=== PATIENT | male | born 1980 | race Caucasian/White ===

== ENCOUNTER 2019-03-01 17:10 | Inpatient (IN) ==
[2019-03-01] MEDS ORDERED: TORADOL IV ONE (17:53)
[2019-03-01] MEDS ORDERED: NS 1,000 ML IV ONE ×2 (17:53→19:21)
--- NOTE | 2019-03-01 17:58 | PROVIDER DOCUMENTATION ---
HPI-Abdominal Pain/GI Problem - General Chief Complaint: Constipation Stated Complaint: STOMACH PAIN Time Seen by Provider: 03/01/19 17:30 Source: patient Allergies/Adverse Reactions: Patient Allergies Allergy/AdvReac Type Severity Reaction Status Date / Time cefaclor [From Ceclor] Allergy Unknown Verified 03/01/19 18:13 Home Medications: Home Medication List Medication Instructions Recorded Confirmed Last Taken Type Hydrocodone/Acetaminophen 1 tab PO PRN PRN 03/01/19 03/01/19 03/01/19 History [Hydrocodone-Acetamin 7.5-325] NK [No Home Medications] 03/01/19 03/01/19 Unknown History - History of Present Illness-ABD Nature of Presenting Problems: Patient is a 38yo M who presents with complaints of RLQ pain, constipation, and fever x5 days. Reports when symptoms originally began, he was experiencing LLQ abdominal pain, vomiting, and diarrhea and was taking OTC medications for the Flu. Reports abdominal pain then moved to around his belly button and has not moved to his RLQ. States he has been taking [place] for dental pain s/p extraction and has been constipated since. Reports no solid BM in 5 days; small liquid BMs x3 days. Has tried numerous OTC laxatives and enemas without improvement. Upon examination, patient appears to be in a moderate amount of distress. Dry mucus membranes noted. Abdominal Pain Onset Location: reports: RLQ, LLQ (onset, then moved to RLQ) Pain Radiation: reports: no radiation Quality of Pain: reports: pressure Severity in ED: reports: moderate Onset/Duration: reports: 5 days ago Timing: reports: constant, getting worse Activities at Onset: reports: none Modifying Factors: improves with: nothing Associated Symptoms: reports: constipation, diarrhea, fever/chills, nausea, vomiting (5 days ago). denies: back/neck pain, shortness of breath Last BM: 5 days ago (no solid BM for 5 days) Dark Stools Present?: reports: none noticed Rectal Bleeding: reports: none # of Diarrhea Episodes: 3 (over the past 5 days) Rectal Pain: reports: none # of Vomiting Episodes: 1 (5 days ago) Emesis Description: reports: other (undigested food) Bruising or Bleeding Gums?: No Similar Symptoms Previously?: No Recently seen or treated by another doctor?: No Review of Systems - Adult - REVIEW OF SYSTEMS - ADULT Constitutional: reports: see HPI, chills, fever Eyes: reports: no symptoms reported Ears, Nose, Mouth & Throat: reports: no symptoms reported Cardiovascular: reports: no symptoms reported. denies: chest pain, palpitations Respiratory: reports: no symptoms reported. denies: cough, shortness of breath Gastrointestinal: reports: see HPI, abdominal pain, constipation, diarrhea, nausea, vomiting Genitourinary: reports: no symptoms reported Musculoskeletal: reports: no symptoms reported Integumentary: reports: no symptoms reported Neurological: reports: no symptoms reported Psychiatric: reports: no symptoms reported Endocrine: reports: no symptoms reported Past History - Adult - PAST MEDICAL HISTORY-ADULT Review of Records: reports: Nursing Assessment Review, Medications Reviewed - IMMUNIZATION STATUS Childhood Immunizations: See Nurse Assessment Flu Vaccine: See Nurse Assessment - FAMILY HISTORY Family History: reviewed, not pertinent Physical Exam-General - PHYSICAL EXAM-ADULT Initial Vital Signs Reviewed: Yes - CONSTITUTIONAL General Appearance: alert, moderate distress. negative: lethargic, slow to respond, obtunded - EYES Eyes: PERRL/EOMI, pink conjunctivae. negative: EOM palsy, scleral icterus - HEAD, EARS, NOSE, MOUTH & THROAT HENMT: normocephalic/atraumatic. negative: moist mucous membranes (dry), angioedema - NECK Neck: full range of motion, supple, normal inspection - RESPIRATORY Respiratory: chest non-tender, lungs clear, normal breath sounds, no pleuratic chest pain, no respiratory distress, no accessory muscle use. negative: crackl es, rales, rhonchi, stridor, wheezing - CARDIOVASCULAR Cardiovascular: no gallop, tachycardia (103) - GASTROINTESTINAL (ABDOMEN) Abdominal Exam: soft, abnormal bowel sounds (hypoactive all quadrants), guarding , rebound, tenderness (LLQ; RLQ), McBurney's point tenderness. negative: rigid, Rovsing's sign - MUSCULOSKELETAL Back Exam: normal inspection Extremity: normal range of motion, non-tender - SKIN Integumentary: normal color, warm/dry. negative: cyanosis, jaundice, mottled, pallor - NEUROLOGIC Neurologic: grossly normal. negative: aphasia, EOM palsy - PSYCHIATRIC Psych/Mental Status: normal mood/affect, normal thought content, normal thought process, oriented x 3 Progress - PLAN OF CARE/RESULTS Progress/Plan/Lab Results: Vital Signs - 8 hr 03/01/19 17:21 Temperature 99.9 F H Pulse Rate 103 H Respiratory Rate 16 Blood Pressure 159/78 O2 Sat by Pulse Oximetry 98 Orders Category Date Time Status Saline Loc NOW Care 03/01/19 17:30 Active CBC WITH ELECTRONIC DIFF [HEME] Stat Lab 03/01/19 17:30 Uncollected COMPREHENSIVE METABOLIC PANEL [CHEM] Stat Lab 03/01/19 17:30 Uncollected LIPASE [CHEM] Stat Lab 03/01/19 17:30 Uncollected URINALYSIS W/POSS RFLX CULT [URINALYSIS] Stat Lab 03/01/19 17:30 Uncollected Ketorolac [Toradol] Med 03/01/19 17:53 Once 30 mg IV NOW ONE Ns 1000 ml IV Bolus X1 Med 03/01/19 17:53 Ordered 0.9% Sodium Chloride Inj [Ns] 1,000 ml IV 999 mls/hr Lab results, imaging results, and need for admission discussed with patient who agrees with and verbalizes understanding. Result Diagrams: 03/01/19 17:55 03/01/19 17:55 - XRAY 1 XRAY: Bilateral XRAY Study: Chest Impression: See EMR Report ([facility] - [address] [facility], [address], [place] [address] [facility] - [address] [place] [address] Department of Imaging Patient: JOSELITO BOYER Date: 03/01/19MR#: [id number] : 1980ADM Status: REG [facility]#: [id number] Age/Sex: 38/MRoom/Bed: Loc: ED Ordering Physician: Vivi Arias Family Physician: None,PCP Reason for Procedure: sepsis protocol Signed EXAM: CHEST-1 VIEW 03/01/2019 HISTORY: sepsis protocol TECHNIQUE: AP portable upright at 1822 COMMENT: The inspiration is suboptimal. There are no previous studies available for comparison. There is no evidence of focal pulmonary opacity. The heart size is slightly enlarged. The pulmonary vascularity is prominent. IMPRESSION: Poor inspiration. Cardiomegaly. Electronically signed by Jonathan Lee 03/01/2019 7:00 PM 03/01/19 1900 Interpreting Physician: Jonathan Lee MD Dictated Date/Time: 03/01/19 185 cc: Vivi Alcantara; None,PCP) - CT/MRI 1 CT Study: Abdomen, Pelvis Impression: See EMR Report ([facility] - [address] [facility], [address], [place] [address] [facility] - [address] [place] [address] Department of Imaging Patient: JOSELITO BOYER Date: 03/01/19#: [id number] : 1980ADM Status: [facility]#: [id number] Age/Sex: 38/MRoom/Bed: Loc: ED Ordering Physician: Vivi Arias Family Physician: None,PCP Reason for Procedure: RLQ pain; fever; constipation Signed EXAM: CT ABD/PELVIS W/IV CONT ONLY 03/01/2019 HISTORY: RLQ pain; fever; constipation TECHNIQUE: This exam was performed using automated exposure control, adjustment of mA or kV according to patient size, and/or use of iterative reconstruction technique. COMMENT: There are no previous studies. The visualized portion of the chest is unremarkable. The spleen contains a calcified granuloma. The liver is unremarkable. The adrenal glands are not enlarged. The pancreas is within normal limits. There is some fluid throughout the colon. The small bowel is not distended. There are nonspecific periaortic nodes the largest of which has a long axis dimension of 1.6 cm. There is induration in the mesenteric fat slightly to the right of the midline. There is an abscess in the upper pelvis around image 132 with poorly defined borders. There is diverticulitis in the anterior sigmoid. There is also extraluminal gas posterior to this loop of the sigmoid. The appendix is normal in appearance. There is fluid present in the distal colon and rectum. The urinary bladder is not distended. There is fat in the left inguinal canal. There are bone islands in the pubic bone on the left. There is no evidence of acute bony abnormality. IMPRESSION: Sigmoid diverticulitis with early abscess formation. Electronically signed by Jonathan Lee 03/01/2019 8:20 PM 03/01/192019 Interpreting Physician: Jonathan Lee MD Dictated Date/Time: 03/01/192016 cc: Vivi Alcantara; None,PCP) - CONSULTS/PCP/HOSPITALIST Notification #1 *Consult/PCP/Hospitalist*: Dr. Crane, Surgery Time Discussed: 20:30 Reason/Comments: Sigmoid diverticulitis w/ abscess formation Consult Disposition: Will see in ED, Admit (To Hospitalist) #2 Consult: Dr. Yin, Hospitalist Time Discussed: 20:36 Reason/Comments: Sigmoid diverticulitis w/ abscess formation Consult Disposition: Admit Departure - Departure Date of Disposition Decision: 03/01/19 Time of Disposition Decision: 20:36 DIAGNOSIS: Diverticulitis of intestine with abscess Qualifiers: Diverticulitis site: unspecified part of intestinal tract Diverticulitis bleeding: unspecified bleeding status Qualified Code(s): K57.80 - Diverticulitis of intestine, part unspecified, with perforation and abscess without bleeding Abdominal pain Qualifiers: Abdominal location: lower abdomen, unspecified Qualified Code(s): R10.30 - L ower abdominal pain, unspecified Nausea & vomiting Qualifiers: Vomiting type: unspecified Vomiting Intractability: non-intractable Qualified Code(s): R11.2 - Nausea with vomiting, unspecified Leukocytosis Qualifiers: Leukocytosis type: unspecified Qualified Code(s): D72.829 - Elevated white blood cell count, unspecified Disposition: ADMITTED INPATIENT 09 Certified Medical Emergency: Emergent Condition: Stable - Critical Care Note This patient required my direct & personal management of CC.: No Attestation - Physician/ CHARLEY Attestation Patient care was provided by Advanced Practice Provider:: Yes Advanced Practice Provider:: Vivi Alcantara Advanced Practice Provider documentation review:: The Mid-level provider documentation, treatment plan and medical decision making was reviewed by the physician who agrees with all treatment and medical decision making by the MLP. The physician spent face to face time with patient:: No Advanced Practice Provider documentation review:: Supervising physician onsite and consulted in the evaluation and care of this patient. The physician did not have a face to face encounter with the patient.
[2019-03-01 18:29] LABS: BASO# 0.03 X1000 (0.0-0.2); BASO% 0.1 % (0.0-0.8); EOS# 0.01 X1000 (0.0-0.7); HEMATOCRIT 40.6 % (42.0-52.0); HEMOGLOBIN 13.9 g/dL (14.0-18.0); IMM GRAN# 0.07 X1000 (0.0-0.04); IMM GRAN% 0.3 % (0.0-0.5); LYMPH# 1.83 X1000 (1.2-3.4); MCH 28.4 PG (27-31); MCHC 34.2 g/dL (33-37); MONO# 1.79 X1000 (0.11-0.59); MONO% 7.8 % (1.7-9.3); MPV 9.7 FL (7.4-10.4); NEUT# 19.11 X1000 (1.4-6.5); NEUT% 83.8 % (42.2-75.2); PLT 224 X1000 (130-400); RBC 4.89 XMIL (4.7-6.1); RDW 12.1 % (11.5-14.5); WBC 22.84 X1000 (4.8-10.8)
[2019-03-01 18:33] LABS: INR 1.1; PROTIME 14.4 Seconds (11.0-16.0)
[2019-03-01 18:34] LABS: PTT 35.7 Seconds (22.3-41.8)
[2019-03-01] MEDS ORDERED: ZOSYN 3.375 GM in NS 50 ML IV ONE (18:38)
[2019-03-01 18:49] LABS: AGAP 19; ALB/GLOB RATIO 1.6; ALBUMIN 4.2 g/dL (3.5-5.0); ALKALINE PHOSPHATASE 89 U/L (32-122); BUN 12 mg/dL (8-22); CALCIUM 9.7 mg/dL (8.8-10.2); CHLORIDE 99 mmol/L (98-107); COSMO 278; CREATININE 0.8 mg/dL (0.7-1.2); ESTIMATED GFR > 60; GLUCOSE 111 mg/dL (70-104); GOT 29 U/L (10-34); GPT 41 U/L (10-44); LIPASE 16 U/L (13-60); POTASSIUM 3.6 mmol/L (3.5-5.1); SODIUM 139 mmol/L (136-145); TCO2 21 mmol/L (25-35); TOTAL BILIRUBIN 0.92 mg/dL (0.20-1.00); TOTAL PROTEIN 6.9 g/dL (6.3-8.3)
--- NOTE | 2019-03-01 19:03 | Diag Imaging Result Doc PS360 ---
EXAM: CHEST-1 VIEW 03/01/2019 HISTORY: sepsis protocol TECHNIQUE: AP portable upright at 1822 COMMENT: The inspiration is suboptimal. There are no previous studies available for comparison. There is no evidence of focal pulmonary opacity. The heart size is slightly enlarged. The pulmonary vascularity is prominent. IMPRESSION: Poor inspiration. Cardiomegaly. Electronically signed by Jonathan Lee 03/01/2019 7:00 PM
[2019-03-01 19:04] LABS: URINE SOURCE CLEAN CATCH
[2019-03-01] MEDS ORDERED: TYLENOL PR ONE (19:21)
[2019-03-01 19:30] LABS: BILIRUBIN URINE SMALL (NEGATIVE); BLOOD URINE TRACE (NEGATIVE); COLOR YELLOW; GLUCOSE URINE NEGATIVE (NEGATIVE); KETONE URINE 100 mg/dL (NEGATIVE); LEUKOCYTES URINE NEGATIVE (NEGATIVE); NITRITE URINE NEGATIVE (NEGATIVE); PH URINE 6.5; PROTEIN URINE 200 mg/dL (NEGATIVE); SP GRAVITY URINE 1.037; TURBIDITY URINE CLEAR (CLEAR); UROBILINOGEN URINE NORMAL (NORMAL)
[2019-03-01 19:34] LABS: UR EPITHELIAL CELLS <10 /HPF (<10); URINE BACTERIA NEGATIVE /HPF; URINE RBC <10 /HPF (<10); URINE WBC <10 /HPF (<10)
[2019-03-01 19:40] LABS: URINE CRYSTALS NONE SEEN
--- NOTE | 2019-03-01 20:22 | Diag Imaging Result Doc PS360 ---
EXAM: CT ABD/PELVIS W/IV CONT ONLY 03/01/2019 HISTORY: RLQ pain; fever; constipation TECHNIQUE: This exam was performed using automated exposure control, adjustment of mA or kV according to patient size, and/or use of iterative reconstruction technique. COMMENT: There are no previous studies. The visualized portion of the chest is unremarkable. The spleen contains a calcified granuloma. The liver is unremarkable. The adrenal glands are not enlarged. The pancreas is within normal limits. There is some fluid throughout the colon. The small bowel is not distended. There are nonspecific periaortic nodes the largest of which has a long axis dimension of 1.6 cm. There is induration in the mesenteric fat slightly to the right of the midline. There is an abscess in the upper pelvis around image 132 with poorly defined borders. There is diverticulitis in the anterior sigmoid. There is also extraluminal gas posterior to this loop of the sigmoid. The appendix is normal in appearance. There is fluid present in the distal colon and rectum. The urinary bladder is not distended. There is fat in the left inguinal canal. There are bone islands in the pubic bone on the left. There is no evidence of acute bony abnormality. IMPRESSION: Sigmoid diverticulitis with early abscess formation. Electronically signed by Jonathan Lee 03/01/2019 8:20 PM
[2019-03-01] MEDS ORDERED: NS 1,000 ML IV SCH (22:05)
[2019-03-01] MEDS: MORPHINE IV PRN (23:30)
[2019-03-01] MEDS: INVANZ 1 GM/NS 1 GM/50 ML IVPB IV SCH (23:31)
--- NOTE | 2019-03-01 23:54 | HISTORY AND PHYSICAL ---
PRIMARY CARE PHYSICIAN: None. CHIEF COMPLAINT: Abdominal pain x1 week. HISTORY OF PRESENTING ILLNESS: This is a 38-year-old male without any significant past medical history who had presented to the emergency department with a 1-week history of having abdominal pain, fever and chills. The patient states the pain was worsening and he was not having any improvement. The patient states that recently underwent a tooth extraction and was put on amoxicillin. He has been on amoxicillin for the past week. However, patient states that he continued to have worsening abdominal discomfort and fevers and subsequently had come to the emergency department. In the ED, he was evaluated. He had imaging done which did show diverticulitis with a possible abscess. His case was discussed with General Surgery who recommended admission for further management. At the time of my examination, patient denied any chest pain, shortness of breath, hemoptysis, melena but complained of abdominal pain, fever, chills and nausea. PAST MEDICAL HISTORY: None. PAST SURGICAL HISTORY: Tooth extraction. ALLERGIES: Cefaclor. CURRENT MEDICATIONS: None. SOCIAL HISTORY: No history of smoking. Admits to social alcohol use. Denies any illicit drug use. FAMILY HISTORY: No history of coronary artery disease. REVIEW OF SYSTEMS: Fourteen point review of system as listed in HPI. Other systems negative. PHYSICAL EXAMINATION: GENERAL: Cooperative, friendly male. He is resting more comfortably now. VITAL SIGNS: Temperature of 102.2 degrees, pulse 101, respirations 16, blood pressure 137/81. HEENT: Atraumatic, normocephalic. Extraocular movements intact. PERRLA. NECK: No masses. CHEST: Clear to auscultation. CARDIOVASCULAR: Regular rate and rhythm. S1, S2. ABDOMEN: Soft. Diffuse tenderness. EXTREMITIES: No edema. NEUROLOGIC: He is awake, alert, oriented x3. GENITOURINARY: No bladder distention. SKIN: Warm. LABORATORIES AND STUDIES: WBC 22.84, hemoglobin 13.9, hematocrit 40.6, platelets 224,000. Sodium 139, potassium 3.6, chloride 99, CO2 is 21, BUN is 12, creatinine 0.8, glucose is 111. Troponin 0.010. CT abdomen and pelvis shows sigmoid diverticulitis with early abscess formation. ASSESSMENT: A 38-year-old male without any significant past medical history presented to the emergency department with 1-week history of having worsening abdominal pain, fever and chills. He was evaluated the emergency department. He had imaging done which did show sigmoid diverticulitis. Subsequently, he will require admission for further management. Acute sigmoid diverticulitis. PLAN: 1. We will admit patient to medical floor with telemetry. 2. We will continue with IV fluids, antiemetics, pain control. 3. We will start patient on IV antibiotics. The patient had been on amoxicillin so we will change to another agent. 4. We will put patient on DVT prophylaxis with SCDs. 5. We will continue to follow and reassess. Make further recommendation based on patient's clinical course. cc: Bruce Yin MD
--- NOTE | 2019-03-02 02:07 | GENERAL SURGERY CONSULTATION ---
DATE: 03/01/2019 CHIEF COMPLAINT: Abdominal pain. REASON FOR CONSULTATION: Diverticular abscess. HISTORY OF PRESENT ILLNESS: This is a 38-year-old gentleman, he is otherwise reasonably healthy. He had a tooth extraction about a week and half ago for an abscessed tooth, was on penicillin for several weeks related to that; over the last 48 to 72 hours he has developed worsening abdominal pain, initially started in left lower quadrant, radiated to the right lower quadrant. He came the ER today after he began feeling much worse and a CT scan was obtained that showed diverticulitis with an adjacent developing abscess. No free intra-abdominal air or free fluid. He had a leukocytosis. Found of the be febrile. He has had no blood in his stools. He did attempt laxatives at home, he thought he was constipated. He has never had a colonoscopy. But prior to the last couple weeks he was in his usual state of health. MEDICAL HISTORY: Recent dental procedures. SURGICAL HISTORY: No abdominal operations but he has had the recent tooth extraction. SOCIAL HISTORY: No tobacco, alcohol, or drugs. He works in the kitchen. FAMILY HISTORY: His maternal grandmother had colon cancer and from this. REVIEW OF SYSTEMS: Ten-point review of systems negative other than what is mentioned in HPI. PHYSICAL EXAMINATION: Vital signs: He is febrile up to 102.2. Low-grade tachycardia, heart rate in the 90s. Blood pressure has been okay. Oxygen saturations normal on room air. General: He is alert, appears uncomfortable, but in no acute distress. HEENT: No scleral icterus. No cervical masses. Cardiovascular: Normal rate. Pulmonary: No increased work of breathing. Abdomen: Soft. He has no diffuse peritonitis. He is tender in the lower abdomen and mostly in the right lower quadrant with some voluntary guarding, but no peritonitis. Integument: Warm and dry. Psychiatric: Appropriate affect. Neurologic: No gross deficits. Peripheral vascular: No lower extremity edema. LABS: White count 22. Renal function normal. Glucose okay. I reviewed his CT scan with findings noted in his HPI. ASSESSMENT AND PLAN: This is a 38-year-old gentleman with developing diverticular abscess. I do not see free air or free fluid, and he does not have peritonitis on exam. Recommended bowel rest and IV antibiotics. He has recently been on penicillin, as such we will transition from Zosyn over to Cipro and Flagyl. We discussed possibility and the role of surgery and the possibility of colostomy. He understands all this. We will pursue nonoperative management, at least in the short-term, monitoring his progress. His significant other is here with him. We discussed the plan with her as well. He has been admitted the hospitalist. Will follow along. cc: Amisha Crane MD
[2019-03-02 06:53] LABS: BASO# 0.02 X1000 (0.0-0.2); BASO% 0.1 % (0.0-0.8); EOS# 0.03 X1000 (0.0-0.7); EOS% 0.1 % (0.0-10.0); HEMATOCRIT 36.5 % (42.0-52.0); HEMOGLOBIN 12.1 g/dL (14.0-18.0); IMM GRAN# 0.07 X1000 (0.0-0.04); IMM GRAN% 0.3 % (0.0-0.5); LYMPH# 1.34 X1000 (1.2-3.4); LYMPH% 6.3 % (20.5-51.1); MCH 28.3 PG (27-31); MCHC 33.2 g/dL (33-37); MCV 85.5 FL (81-99); MONO# 1.85 X1000 (0.11-0.59); MONO% 8.7 % (1.7-9.3); MPV 9.4 FL (7.4-10.4); NEUT# 17.87 X1000 (1.4-6.5); NEUT% 84.5 % (42.2-75.2); PLT 195 X1000 (130-400); RBC 4.27 XMIL (4.7-6.1); RDW 12.1 % (11.5-14.5); WBC 21.18 X1000 (4.8-10.8)
[2019-03-02] MEDS: MORPHINE IV PRN ×2 (07:09→11:03)
[2019-03-02 07:15] LABS: AGAP 14; BUN 15 mg/dL (8-22); CALCIUM 8.8 mg/dL (8.8-10.2); CHLORIDE 104 mmol/L (98-107); COSMO 281; CREATININE 0.8 mg/dL (0.7-1.2); ESTIMATED GFR > 60; GLUCOSE 106 mg/dL (70-104); POTASSIUM 3.4 mmol/L (3.5-5.1); SODIUM 140 mmol/L (136-145); TCO2 22 mmol/L (25-35)
[2019-03-02] MEDS: OFIRMEV 1000 MG/ISOTONIC SOLN 1,000 MG/100 ML BOTTLE IV PRN ×2 (10:48→16:41)
[2019-03-02] MEDS: SODIUM CHLORIDE 0.9% INJ SCH ×2 (10:51→21:19)
[2019-03-02] MEDS: PEPCID IV SCH ×2 (10:51→21:19)
[2019-03-02] MEDS: DILAUDID IV PRN ×4 (12:18→21:20)
[2019-03-02] MEDS: LOVENOX SUBQ SCH (15:10)
--- NOTE | 2019-03-02 16:07 | PROGRESS NOTE ---
DATE: 03/02/2019 SUBJECTIVE: This patient is complaining of severe abdominal pain. He has been getting morphine, but it has not been working, I switched to Dilaudid 1 mg every 3 hours and this seems to be working better. His mother is at the bedside. All their questions were answered. I will continue with IV fluids. I will continue with pain medication. I will add famotidine twice a day, and for now, we will keep an eye on him. Surgery department evaluated this patient. He has a sigmoid diverticulitis with early abscess formation, surgery department on board and they will try to monitor this patient with bowel rest and antibiotics. There is a possibility of surgical intervention if he does not get better. OBJECTIVE: Vital Signs: Temperature 99.1 degrees, pulse 89, respiratory rate 22, blood pressure 148/85. Oxygen saturation 95% on room air. HEENT: Head normocephalic, no trauma. PERRLA. Neck: Supple. No JVD. No masses. Central trachea. Chest: Clear to auscultation. No wheezing. No rales. Abdomen: Soft. Tender to palpation at the level of the periumbilical and right flank and right lower quadrant, no rebound. Extremities: No edema. No clubbing, no cyanosis. Neurological: The patient is alert. He is oriented x3. No focal deficits. LABORATORY DATA: WBC 21.1, hemoglobin 12.1, hematocrit 36.5, platelets 195,000. Sodium 140, potassium 3.4, chloride 104, bicarbonate 22, BUN 15, creatinine 0.8, glucose 106, calcium 8.8. ASSESSMENT AND PLAN: 1. Acute sigmoid diverticulitis with possible early abscess formation, surgery department on board. We will monitor this patient closely. He has been placed on IV fluids and broad- spectrum antibiotics. I have modified his pain medication, because he was having too much pain. 2. Obesity with a body mass index of 35.5, aware. 3. Deep vein thrombosis prophylaxis with Lovenox. 4. Fever, likely due to #1. We will continue with the same management . cc: Bishop Peña MD MTDD
[2019-03-02] MEDS: NS + KCL 20 MEQ 1,000 ML IV SCH (16:48)
--- NOTE | 2019-03-02 19:57 | GENERAL SURGERY PROGRESS NOTE ---
DATE: 03/02/2019 SUBJECTIVE: He feels better this morning. OBJECTIVE: Vital signs: He continued to have low-grade fevers as high as 101 overnight but no tachycardia. Blood pressure has been systolic to 140, oxygen saturation 95%. General: He is alert. Cardiovascular: Normal rate. Pulmonary: No increased work of breathing. Abdomen: Soft, much less tender, nondistended, no peritonitis. LABORATORY DATA: White count remains elevated at 21, hematocrit is 36, creatinine 0.8. ASSESSMENT AND PLAN: This is a 38-year-old gentleman admitted with diverticular abscess. He maybe shows some improvement, although he remains low-grade fevers. We will follow him closely going forward. If he does not show improvement over the next 48 hours, we may consider surgical intervention. I discussed with the patient we will continue bowel rest and only sips of liquids for comfort. Okay to start him on prophylactic Lovenox and recommend this. cc: Amisha Crane MD
[2019-03-02] MEDS: INVANZ 1 GM/NS 1 GM/50 ML IVPB IV SCH ×2 (21:19→23:15)
[2019-03-03] MEDS: NS + KCL 20 MEQ 1,000 ML IV SCH ×3 (00:23→18:29)
[2019-03-03] MEDS: DILAUDID IV PRN ×8 (00:23→21:42)
[2019-03-03 07:03] LABS: BASO# 0.02 X1000 (0.0-0.2); BASO% 0.1 % (0.0-0.8); EOS# 0.09 X1000 (0.0-0.7); EOS% 0.6 % (0.0-10.0); HEMATOCRIT 35.8 % (42.0-52.0); HEMOGLOBIN 11.7 g/dL (14.0-18.0); IMM GRAN# 0.06 X1000 (0.0-0.04); IMM GRAN% 0.4 % (0.0-0.5); LYMPH# 1.51 X1000 (1.2-3.4); LYMPH% 9.4 % (20.5-51.1); MCH 28.3 PG (27-31); MCHC 32.7 g/dL (33-37); MCV 86.5 FL (81-99); MONO% 8.1 % (1.7-9.3); MPV 9.5 FL (7.4-10.4); NEUT# 13.07 X1000 (1.4-6.5); NEUT% 81.4 % (42.2-75.2); PLT 255 X1000 (130-400); RBC 4.14 XMIL (4.7-6.1); RDW 12.2 % (11.5-14.5); WBC 16.05 X1000 (4.8-10.8)
[2019-03-03 07:35] LABS: AGAP 12; BUN 14 mg/dL (8-22); CALCIUM 8.9 mg/dL (8.8-10.2); CHLORIDE 107 mmol/L (98-107); COSMO 286; CREATININE 0.7 mg/dL (0.7-1.2); ESTIMATED GFR > 60; GLUCOSE 109 mg/dL (70-104); POTASSIUM 4.1 mmol/L (3.5-5.1); SODIUM 143 mmol/L (136-145); TCO2 24 mmol/L (25-35)
[2019-03-03] MEDS: PEPCID IV SCH ×2 (10:00→21:43)
[2019-03-03] MEDS: LOVENOX SUBQ SCH (14:45)
--- NOTE | 2019-03-03 15:51 | PROGRESS NOTE ---
DATE: 03/03/2019 SUBJECTIVE: This morning Mr. Williamson refers to be doing a little better. Still has some remarkable abdominal pain, but he thinks he is feeling slightly better. was at the bedside at the time of the encounter. OBJECTIVE: Vital Signs: Blood pressure is 133/72, pulse of 90, respirations 20, temperature is 99.5 degrees. Patient is saturating 95% on room air. General: Mr. Williamson is a 38-year-old gentleman. He is in bed. He is in mild painful distress. HEENT: Mucosa is pink and moist. Anicteric. Acyanotic. Neck: Supple. Chest: Good air entry bilaterally. There are no crepitations. No rhonchi. Cardiovascular: Regular rate and rhythm. Abdomen: Soft, is tender almost everywhere. The patient remained stiff, so it was very hard for me to elicit any peritoneal signs. Central Nervous System: The patient is awake, alert, and oriented. LABORATORY DATA: WBC is 16.05, hemoglobin is 11.7, platelet count of 255,000. Chemistry is also reviewed, completely unremarkable. CURRENT MEDICATIONS: The patient's current medications have all been reviewed. He is on ertapenem. ASSESSMENT AND PLAN: 1. Sepsis on admission secondary to complicated diverticular disease. 2. Sigmoid diverticulitis with early abscess formation. The patient has been evaluated by surgery. Plan is to continue with medical management. 3. Obesity with body mass index of 35.5. cc: Kai Vaughn MD
[2019-03-03] MEDS: OFIRMEV 1000 MG/ISOTONIC SOLN 1,000 MG/100 ML BOTTLE IV PRN (16:40)
[2019-03-03] MEDS: INVANZ 1 GM/NS 1 GM/50 ML IVPB IV SCH ×2 (21:43→22:21)
--- NOTE | 2019-03-03 22:28 | GENERAL SURGERY PROGRESS NOTE ---
DATE: 03/03/2019 SUBJECTIVE: He is still having some lower abdominal pain. He has no diffuse abdominal pain. Low- grade fever overnight, but this seems to be improving over the course of the day today. OBJECTIVE: No tachycardia. Blood pressure 140/77. General: He is alert. Cardiovascular: Normal rate. Pulmonary: No increased work of breathing. His abdomen is soft. He is tender in the lower quadrants, but much less so with no peritonitis. LABORATORY DATA: White count 16, hematocrit 35. Creatinine 0.7. ASSESSMENT AND PLAN: This is a 38-year-old gentleman with a contained focal perforation of the sigmoid colon related to diverticulitis. He is clinically improving. Would recommend continued bowel rest and antibiotics. It is okay for him to have clear liquid sips. We will follow him along. Dr. Trinidad is product manufacturing professional this weekend. cc: Amisha Crane MD
[2019-03-04] MEDS: DILAUDID IV PRN ×5 (00:55→18:16)
[2019-03-04] MEDS: OFIRMEV 1000 MG/ISOTONIC SOLN 1,000 MG/100 ML BOTTLE IV PRN (00:56)
[2019-03-04] MEDS: NS + KCL 20 MEQ 1,000 ML IV SCH ×4 (04:02→21:30)
[2019-03-04 07:05] LABS: BASO# 0.02 X1000 (0.0-0.2); BASO% 0.1 % (0.0-0.8); EOS# 0.11 X1000 (0.0-0.7); EOS% 0.6 % (0.0-10.0); HEMATOCRIT 37.6 % (42.0-52.0); HEMOGLOBIN 12.1 g/dL (14.0-18.0); IMM GRAN# 0.07 X1000 (0.0-0.04); IMM GRAN% 0.4 % (0.0-0.5); LYMPH# 1.67 X1000 (1.2-3.4); LYMPH% 9.5 % (20.5-51.1); MCH 28.1 PG (27-31); MCHC 32.2 g/dL (33-37); MCV 87.2 FL (81-99); MONO# 1.34 X1000 (0.11-0.59); MONO% 7.6 % (1.7-9.3); MPV 9.5 FL (7.4-10.4); NEUT# 14.46 X1000 (1.4-6.5); NEUT% 81.8 % (42.2-75.2); PLT 329 X1000 (130-400); RBC 4.31 XMIL (4.7-6.1); RDW 12.3 % (11.5-14.5); WBC 17.67 X1000 (4.8-10.8)
[2019-03-04] MEDS: PEPCID IV SCH ×2 (10:45→22:28)
[2019-03-04] MEDS ORDERED: NS + KCL 20 MEQ 1,000 ML IV SCH (11:01)
[2019-03-04] MEDS ORDERED: MYLICON PO PRN (11:02)
[2019-03-04] MEDS: MYLICON PO PRN (12:46)
[2019-03-04] MEDS: LOVENOX SUBQ SCH (14:43)
--- NOTE | 2019-03-04 14:53 | PROGRESS NOTE ---
DATE: 03/04/2019 SUBJECTIVE: Mr. Arvind Williamson is a 38-year-old white male who is admitted with acute sigmoid diverticulitis. He is being seen by Dr. Crane. He appears to be improving on IV antibiotics. OBJECTIVE: Vital signs: His heart rate is 83, blood pressure 143/83, O2 saturation 95%. He has a low-grade temperature of 99.4 degrees. Abdomen: His left-sided abdominal pain has improved. He has had a liquid bowel movement this morning. LABORATORY DATA: His white blood cell count has gone from 16 to 17, hematocrit is 38%. PLAN: He has been n.p.o. but I think we can start him on clear liquids. We need to continue IV antibiotics and follow his clinical course. cc: Martine Trinidad MD
--- NOTE | 2019-03-04 17:52 | PROGRESS NOTE ---
DATE: 03/04/2019 SUBJECTIVE: This morning Mr. Williamson refers to be doing well. He said he has had a bowel movement early on today, and his abdominal pain is in getting better. OBJECTIVE: Vital signs.: Blood pressure is 143/83, pulse of 83, respirations 16, temperature 99.4. The patient is saturating 95% on room air General: Mr. Williamson is a 38-year-old gentleman. He is in bed in no distress. HEENT: Mucosa is pink and moist. Anicteric. Acyanotic. Neck: Supple. Chest: Clear to auscultation. No crepitations. No rhonchi. No accessory muscle use. Cardiovascular: Regular rate and rhythm. No murmurs, no rubs, no gallops. GI: Abdomen is soft. Minimally tender, especially to the right lower abdomen, but there was no guarding. CAMPUS INTERVIEWS INTERN: The patient is awake, alert, oriented. There is no focal deficit. LABORATORY DATA: WBC is slightly elevated today. Otherwise, the rest of the CBC is unremarkable. Blood cultures have been 48 hours negative. The patient is on ertapenem. Today is day 3. ASSESSMENT: 1. Sepsis on admission secondary to complication of diverticular disease. 2. Sigmoid colon diverticulitis with early abscess formation. The patient has been evaluated by Surgery. For now, the recommendation is to continue with medical therapy. The patient seems to be gradually getting better. 3. Obesity with body mass index of 35.5 noted. PLAN: In general, I think Mr. Williamson is doing better. Abdominal pain seems to be getting better. He is currently on ice chips and sips of water. Surgery is on board. We recommended to continue conservative management for now to see if we can avoid surgery. cc: Kai Vaughn MD
[2019-03-04] MEDS ORDERED: DILAUDID IV ONE (20:45)
[2019-03-04] MEDS ORDERED: DEMEROL ONE (21:23)
[2019-03-04] MEDS ORDERED: VERSED ONE (21:23)
[2019-03-04] MEDS ORDERED: DIPRIVAN 1% ONE (21:24)
[2019-03-04] MEDS ORDERED: DILAUDID ONE (21:24)
--- NOTE | 2019-03-04 21:52 | Diag Imaging Result Doc PS360 ---
EXAM: CT ABDOMEN/PELVIS W/O CONTRAST HISTORY: increased pain TECHNIQUE: CT abdomen and pelvis without contrast COMPARISON: 03/01/2019 FINDINGS: There is now a large amount of free air within the upper and mid abdomen. Large air-fluid level in the mid to lower abdomen measuring over 8 cm in diameter. Poorly defined wall. Wall thickening to the adjacent bowel remains. There is a small amount of free fluid about the liver and spleen and in each paracolic gutter. Moderate free fluid in the pelvis. No other interval change. IMPRESSION: Diverticulitis with worsening free air and fluid with a developing abscess. This exam was performed using automated exposure control, adjustment of mA or kV according to patient size, and/or use of iterative reconstruction technique. Electronically signed by Aurelio Morin 03/04/2019 9:50 PM
[2019-03-04] MEDS: INVANZ 1 GM/NS 1 GM/50 ML IVPB IV SCH ×2 (22:28→22:48)
[2019-03-04] MEDS ORDERED: INVANZ 1 GM/NS 1 GM/50 ML IVPB IV ONE (22:45)
[2019-03-05] MEDS ORDERED: OFIRMEV 1000 MG/ISOTONIC SOLN 1,000 MG/100 ML BOTTLE ONE (00:14)
[2019-03-05] MEDS ORDERED: TORADOL ONE (00:14)
[2019-03-05] MEDS ORDERED: MORPHINE IV PRN (00:17)
[2019-03-05] MEDS ORDERED: PHENERGAN IV PRN (00:20)
[2019-03-05] MEDS ORDERED: SODIUM CHLORIDE 0.9% INJ PRN (00:30)
[2019-03-05] MEDS ORDERED: PHENERGAN ONE (00:30)
[2019-03-05] MEDS: TORADOL IV SCH ×4 (00:53→18:31)
[2019-03-05] MEDS: LR 1,000 ML IV SCH ×2 (00:56→21:37)
[2019-03-05] MEDS: OFIRMEV 1000 MG/ISOTONIC SOLN 1,000 MG/100 ML BOTTLE IV SCH ×4 (00:56→18:31)
[2019-03-05 01:11] LABS: URINE SOURCE CATH
[2019-03-05 01:34] LABS: BILIRUBIN URINE NEGATIVE (NEGATIVE); BLOOD URINE TRACE (NEGATIVE); COLOR YELLOW; GLUCOSE URINE NEGATIVE (NEGATIVE); KETONE URINE 40 mg/dL (NEGATIVE); LEUKOCYTES URINE NEGATIVE (NEGATIVE); NITRITE URINE NEGATIVE (NEGATIVE); PH URINE 5.5; PROTEIN URINE 30 mg/dL (NEGATIVE); SP GRAVITY URINE 1.029; TURBIDITY URINE CLEAR (CLEAR); UROBILINOGEN URINE 4 mg/dL (NORMAL)
[2019-03-05 01:35] LABS: UR EPITHELIAL CELLS <10 /HPF (<10); URINE BACTERIA NEGATIVE /HPF; URINE RBC <10 /HPF (<10); URINE WBC <10 /HPF (<10)
--- NOTE | 2019-03-05 01:35 | PROGRESS NOTE ---
DATE: 03/04/2019 SUBJECTIVE: Mr. Williamson this afternoon began experiencing worsening abdominal pain diffusely of the lower abdomen, where he could not get comfortable even with his pain medicine. CT scan was ordered by our hospitalist. That has been completed. ASSESSMENT AND PLAN: I have seen him at the bedside, fourth floor in his room, 422. It appears that he has peritonitis and we will proceed urgently with exploratory laparotomy, with plans to resect the sigmoid colon secondary to perforated diverticulum. He will probably need a diverting colostomy. I have discussed that with the patient and his mother. They understand this is major intraabdominal surgery. We discussed risks of bleeding, infection, problems with the colostomy and the need for another operation to take down the colostomy. He understands the need for surgery and its risks, and he wants to proceed. cc: Martine Trinidad MD
--- NOTE | 2019-03-05 04:07 | OPERATIVE NOTE ---
PROCEDURE DATE: 03/04/2019 PREOPERATIVE DIAGNOSIS: Hinchey type 4 acute sigmoid diverticulitis. POSTOPERATIVE DIAGNOSIS: Hinchey type 4 acute sigmoid diverticulitis. PRINCIPAL PROCEDURE: Exploratory laparotomy with sigmoid colon resection, Iris's pouch and descending end colostomy. SURGEON: Martine Trinidad MD. MED DIR: Deo Woodson ANESTHESIA: General. ESTIMATED BLOOD LOSS: 150 mL. DRAINS: None. INDICATIONS: Arvind Williamson is a 38-year-old overweight white male who is admitted on 03/01/2019 with acute complicated sigmoid diverticulitis. He was treated initially conservatively with IV antibiotics and clear liquids, but today his pain worsened significantly. A repeat CT scan showed free air and free fluid intra-abdominally and within the pelvis and an urgent operation was recommended. FINDINGS: He had gross purulence and stool intra-abdominally. There was small-bowel interloop adhesed to each other with exudate. There was purulence in all 4 quadrants of the abdomen. He had an area of his sigmoid colon that was thickened, perforated and acutely inflamed. We removed the sigmoid colon, brought out the descending end colostomy and left a Iris's pouch. DESCRIPTION OF PROCEDURE: The patient was brought to the operating room, placed supine, received general anesthesia, was intubated. Perdomo catheter tube was placed. An NG tube was placed. His abdomen was prepped and draped in a sterile field. We used an Ioban on the skin. He was already on IV Invanz. We made a lower midline incision with a 10 blade scalpel, this incision was carried down through the skin and subcutaneous tissue and through the midline fascia. Using cautery, we carefully entered the abdomen. There was gross purulence and stool intra-abdominally, cultures were taken. We took time to suck out all the fluid within the pelvis and all 4 quadrants of the abdomen. We then placed a large wound protector for protection of our wound, but also for retraction. The patient was placed in Trendelenburg. Initially, I used my hand to mobilize the sigmoid colon from the small bowel and retroperitoneum and the right and left side of abdomen. Once the sigmoid colon was mobilized, we removed suction and removed all the infected fluid. I identified the proximal rectum, I used cautery to come around the rectum and the mesentery and used a blue load INESSA to transect the sigmoid-rectal junction right at the sacral promontory. I used the LigaSure to come across the mesentery from distal to proximal. I did take the inferior sigmoidal vessels and the inferior mesenteric vessels. I did this with the LigaSure. We dissected distal to proximal, I came across the sigmoid descending junction where there was no disease, again with the INESSA stapler blue load and the specimen was removed from the field. I placed 2 Prolene stitches on either side of the staple line of the remaining rectum to latrell it for a colostomy takedown in the future. I took a lot of time to thoroughly irrigate the pelvis and both upper quadrants of the abdomen with warm saline. This warm saline was removed using suction. I made sure that all interloop adhesions were taken down and any exudate off the small bowel was removed as best as we could. I placed the omentum back over the bowel and then I directed my attention to forming the end colostomy. I made a small inupiat in the skin overlying the rectus muscle just below the umbilicus on the left. This incision was carried down through the subcutaneous tissue to the anterior rectus sheath. I incised over the anterior rectus sheath using cautery. I bluntly dissected the muscle and then transected the posterior rectus sheath using cautery. I used a small wound protector to open this ostomy site up so that I could bring the end colostomy through the anterior abdominal wall with as little trauma as possible. We felt we had enough length on our ostomy and that it was viable, it was swollen and there was lot of fat around it because of the patient's weight. I removed the wound protector. I took time to close our lower midline incision. I closed it in layers. The first layer was a running #1 Vicryl stitch to reapproximate the peritoneum and I closed the fascia with a running #1 Maxon stitch to close the fascia. I then thoroughly irrigated the wound and then closed it loosely with a skin clip client solutions specialist and packed between the clips with iodoform gauze. A dry dressing and Medipore tape was used. I then secured the ostomy circumferentially to the dermis with interrupted 3-0 Vicryl stitches. I removed the staple line from the end colostomy. I did not pj the colostomy because of all the fat around it. We bagged the end colostomy, it did appear to be viable and it was not twisted. Plans are for him to go the recovery room and then back to his room on the floor. He still has a Perdomo catheter tube in place, NG tube and a freshly made left-sided end colostomy. cc: Martine Trinidad MD
[2019-03-05 07:19] LABS: BASO# 0.04 X1000 (0.0-0.2); BASO% 0.2 % (0.0-0.8); HEMATOCRIT 41.8 % (42.0-52.0); HEMOGLOBIN 13.6 g/dL (14.0-18.0); IMM GRAN# 0.11 X1000 (0.0-0.04); IMM GRAN% 0.5 % (0.0-0.5); LYMPH# 1.14 X1000 (1.2-3.4); LYMPH% 5.1 % (20.5-51.1); MCH 28.2 PG (27-31); MCHC 32.5 g/dL (33-37); MCV 86.5 FL (81-99); MONO# 1.16 X1000 (0.11-0.59); MONO% 5.2 % (1.7-9.3); MPV 9.5 FL (7.4-10.4); NEUT# 19.95 X1000 (1.4-6.5); PLT 398 X1000 (130-400); RBC 4.83 XMIL (4.7-6.1); RDW 12.5 % (11.5-14.5)
[2019-03-05 07:36] LABS: AGAP 12; BUN 14 mg/dL (8-22); CALCIUM 8.6 mg/dL (8.8-10.2); CHLORIDE 104 mmol/L (98-107); COSMO 289; CREATININE 0.7 mg/dL (0.7-1.2); ESTIMATED GFR > 60; GLUCOSE 157 mg/dL (70-104); POTASSIUM 4.4 mmol/L (3.5-5.1); SODIUM 143 mmol/L (136-145); TCO2 27 mmol/L (25-35)
[2019-03-05] MEDS: PEPCID IV SCH ×2 (10:10→21:37)
[2019-03-05] MEDS: LOVENOX SUBQ SCH (10:10)
[2019-03-05] MEDS: PERIDEX MT SCH ×2 (10:10→21:37)
--- NOTE | 2019-03-05 11:18 | PROGRESS NOTE ---
DATE: 03/05/2019 SUBJECTIVE: Mr. Arvind Williamson is now postop day 1 from an urgent exploratory laparotomy with sigmoid colon resection, Iris's pouch, and left descending end colostomy for a Hinchey type IV acute diverticulitis. He had gross intraabdominal purulence and stool. This morning, clinically he feels better. His lower midline incision is packed between danielle with iodoform to try to prevent wound infection. His ostomy appears to be viable, but it is large because of swelling. Bag is over it. There has been no output. He is awake, cooperative, with no work of breathing. His heart rate is 75, his blood pressure is 125/67, O2 saturation 100%, he is afebrile. He is on IV Invanz daily. His white blood cell count is 22, hematocrit is 42%. Electrolytes are within normal limits. BUN is 14, creatinine 0.7. PLAN: Will look to remove his NG tube in the next 24 hours. Will leave his Perdomo catheter tube for now. Will begin trying to get him to sit on the side of the bed or in the chair. We will continue IV antibiotics and fluids. I will be out , and Dr. Louise and Dr. Berger are covering for our group, and beginning Wednesday, he will be under their care. I have discussed this with the patient and his family. cc: Martine Trinidad MD
[2019-03-05] MEDS: DILAUDID IV PRN ×2 (12:17→21:38)
--- NOTE | 2019-03-05 17:20 | PROGRESS NOTE ---
DATE: 03/05/2019 INTERVAL HISTORY: The patient doing fairly well status post colon resection and ostomy creation after perforation of his diverticulitis. The patient reports some pain when he got up out of bed for a bit earlier but otherwise pain has been well controlled. Did have fever yesterday up to 100. No significant output from his ostomy so far. REVIEW OF SYSTEMS: 12-point review of systems negative as per interval history. LABS: WBC 22.4, hemoglobin 13.6, hematocrit 41.8, platelets 398,000. Basic metabolic panel unremarkable aside from glucose 157. Urinalysis essentially unremarkable. VITALS: T-max 100 degrees, pulse 75, respirations 16, blood pressure 125/82, O2 saturation 96% on room air next. PHYSICAL EXAMINATION: General: No acute distress. Vitals as above. HEENT: Normocephalic, atraumatic. Moist mucous membranes. NG tube in place. Cardiovascular: Regular rate and rhythm. No murmurs noted. Pulmonary: Clear to auscultation bilaterally. No wheezing, rales or rhonchi. Abdomen: Low midline incision bandaged. Ostomy in place in left lower quadrant with a very small amount of sanguinous fluid. Bowel sounds essentially absent. Extremities: Peripheral pulses intact. No clubbing, cyanosis. Neurologic: Cranial nerves grossly intact. No focal deficits identified. Psychiatric: Normal mood and affect. Awake, alert, oriented x3. Skin: No new rashes or lesions identified. Surgical incision bandaged as above. ASSESSMENT AND PLAN: 1. Diverticulitis with perforation and early abscess. Status post exploratory laparotomy with sigmoid colon resection and colostomy placement by Dr. Trinidad yesterday. Doing fairly well postop. Mildly elevated temperatures yesterday but none today. Pain reasonably well controlled. No ostomy output yet but that is not unexpected. Nasogastric tube in place but not really any nausea or vomiting. Continue antibiotics with Invanz. Continue pain control as directed by surgery and will await return bowel function. 2. Sepsis secondary to #1 on antibiotics as above. Blood cultures no growth. 3. Obesity. Patient has been counseled on diet and exercise. 4. Leukocytosis likely secondary to perforation of diverticulitis. Antibiotics as above. [facility]
[2019-03-05] MEDS: SODIUM CHLORIDE 0.9% INJ SCH (21:37)
[2019-03-05] MEDS: INVANZ 1 GM/NS 1 GM/50 ML IVPB IV SCH (21:50)
[2019-03-05] MEDS ORDERED: INVANZ 1 GM/NS 1 GM/50 ML IVPB IV SCH (22:00)
[2019-03-06] MEDS: OFIRMEV 1000 MG/ISOTONIC SOLN 1,000 MG/100 ML BOTTLE IV SCH ×5 (00:50→20:26)
[2019-03-06] MEDS: TORADOL IV SCH ×4 (00:50→17:33)
[2019-03-06] MEDS: DILAUDID IV PRN ×4 (03:02→21:57)
--- NOTE | 2019-03-06 06:46 | GENERAL SURGERY PROGRESS NOTE ---
DATE: 03/06/2019 SUBJECTIVE: Patient seems to be doing okay. OBJECTIVE: Vital Signs: Patient is currently afebrile. His vital signs are stable. General exam: No acute distress. Cardiovascular: Regular rate and rhythm. Lungs: Grossly clear. Abdomen: Soft, appropriately tender. Ostomy appears viable, but just weeping at this point. LABORATORY: White blood cell count yesterday was 22, which is likely reactive. Remainder of labs reviewed. ASSESSMENT AND PLAN: A 38-year-old gentleman, currently postoperative day #2 from Iris's procedure for diverticulitis. 1. Postoperative state at this time: We will remove his Perdomo catheter. We will wait definitive return of bowel function. Hopefully, he will have that here pretty soon. We can remove his nasogastric tube once he is having some output. Get enterostomal therapy to see the patient. cc: Red Berger MD MTDD
[2019-03-06] MEDS: LR 1,000 ML IV SCH ×2 (06:58→18:49)
[2019-03-06] MEDS: LOVENOX SUBQ SCH (08:16)
[2019-03-06] MEDS: PERIDEX MT SCH ×2 (08:16→20:26)
[2019-03-06] MEDS: PEPCID IV SCH ×3 (09:30→22:02)
[2019-03-06] MEDS: ZOFRAN IV PRN (16:04)
--- NOTE | 2019-03-06 18:30 | PROGRESS NOTE ---
DATE: 03/06/2019 INTERVAL HISTORY: Patient beginning to have some flatus and a small amount of liquid output from his ostomy. Beginning to ambulate more. Pain reasonably well controlled. No acute events. No new complaints. REVIEW OF SYSTEMS: Twelve point review of systems negative except as per interval history. LABS: WBC 22.4, hemoglobin 13.6, hematocrit 41.8, platelets 398,000. Basic metabolic panel unremarkable aside from glucose 157. VITAL SIGNS: T-max 98.6 degrees, pulse 80, respirations 19, blood pressure 138/70, O2 saturation 94% on room air. PHYSICAL EXAMINATION: General: No acute distress. Vital signs: As above. HEENT: Normocephalic, atraumatic. Moist mucous membranes. NG tube remains in place with dark drainage. Cardiovascular: Regular rate and rhythm. No murmurs noted. Pulmonary: Clear to auscultation bilaterally. No wheezing, rales, or rhonchi. Abdomen: Low midline incision remains bandaged. Ostomy in place in left lower quadrant with small amount of fluid in the bag. Bowel sounds still quite decreased but not entirely absent. Extremities: Peripheral pulses intact. No clubbing or cyanosis. Neurologic: Cranial nerves grossly intact. No focal deficits identified. Psychiatric: Normal mood and affect. Awake, alert, oriented x3. Skin: No new rashes or lesions identified. Surgical incision bandaged, as noted above. ASSESSMENT AND PLAN: 1. Diverticulitis with perforation and early abscess. Status post exploratory laparotomy with sigmoid colon resection and ostomy placement by Dr. Trinidad 03/04. Doing pretty well postop. Pain well controlled. No further fevers. Ostomy beginning to have some slight output and bowel sounds while still decreased are a little better than they were. NG tube in place. No nausea or vomiting. Remains on antibiotics with Invanz. Continue management as per surgery. 2. Hyperglycemia. No history of diabetes. Suspect it is reactive and/or stress induced, but we will go ahead and check an A1c. 3. Sepsis secondary to #1. On antibiotics. Blood cultures no growth. Sepsis now resolved. 4. Obesity. Patient has been counseled on diet and exercise. 5. Leukocytosis secondary to #1. A little bit of an increase over the past couple days, likely related to stress of surgery. Not really any other signs of new or worsening infection, but will continue to monitor.
[2019-03-06] MEDS: SODIUM CHLORIDE 0.9% INJ SCH (22:02)
[2019-03-06] MEDS: INVANZ 1 GM/NS 1 GM/50 ML IVPB IV SCH (22:03)
[2019-03-07] MEDS: OFIRMEV 1000 MG/ISOTONIC SOLN 1,000 MG/100 ML BOTTLE IV SCH ×4 (01:02→18:47)
[2019-03-07] MEDS: TORADOL IV SCH ×4 (01:02→18:47)
[2019-03-07] MEDS: DILAUDID IV PRN ×3 (01:12→20:54)
[2019-03-07] MEDS: LR 1,000 ML IV SCH ×3 (05:31→23:25)
[2019-03-07 07:29] LABS: AGAP 15; BUN 16 mg/dL (8-22); CALCIUM 8.9 mg/dL (8.8-10.2); CHLORIDE 106 mmol/L (98-107); COSMO 299; CREATININE 0.7 mg/dL (0.7-1.2); ESTIMATED GFR > 60; GLUCOSE 93 mg/dL (70-104); POTASSIUM 3.7 mmol/L (3.5-5.1); SODIUM 150 mmol/L (136-145); TCO2 29 mmol/L (25-35)
[2019-03-07 08:50] LABS: BASO# 0.05 X1000 (0.0-0.2); BASO% 0.3 % (0.0-0.8); EOS# 0.32 X1000 (0.0-0.7); EOS% 2.2 % (0.0-10.0); HEMATOCRIT 36.3 % (42.0-52.0); HEMOGLOBIN 11.5 g/dL (14.0-18.0); IMM GRAN# 0.08 X1000 (0.0-0.04); IMM GRAN% 0.6 % (0.0-0.5); LYMPH% 11.2 % (20.5-51.1); MCHC 31.7 g/dL (33-37); MCV 88.5 FL (81-99); MONO# 1.27 X1000 (0.11-0.59); MONO% 8.9 % (1.7-9.3); MPV 9.4 FL (7.4-10.4); NEUT# 11.01 X1000 (1.4-6.5); NEUT% 76.8 % (42.2-75.2); PLT 433 X1000 (130-400); RDW 12.4 % (11.5-14.5); WBC 14.33 X1000 (4.8-10.8)
[2019-03-07] MEDS: PERIDEX MT SCH ×2 (10:10→23:25)
[2019-03-07] MEDS: LOVENOX SUBQ SCH (10:10)
--- NOTE | 2019-03-07 10:24 | GENERAL SURGERY PROGRESS NOTE ---
DATE: 03/07/2019 SUBJECTIVE: Patient seems to be doing better. He is not sick to his stomach. He has had some ostomy output. OBJECTIVE: Vital Signs: Patient is currently afebrile. His vital signs are stable. General: No acute distress. Cardiovascular: Regular rate and rhythm. Lungs: Grossly clear. Abdomen: Soft appropriately tender. Ostomy appears viable with some liquid stool in it. ASSESSMENT AND PLAN: A 38-year-old gentleman, currently postoperative day #3 from Iris's procedure for perforated diverticulitis. Postoperative state at this time, he is doing okay with his Perdomo catheter out. We will clamp his NG tube. Right now, let him have clear liquids. If he seems to do okay through the course of the day, have the nurses remove his NG tube, but otherwise we will continue to monitor him. He is on Lovenox and Invanz. cc: Red Berger MD
[2019-03-07] MEDS: PEPCID IV SCH ×2 (11:45→23:24)
[2019-03-07] MEDS: ZOFRAN IV PRN (13:06)
--- NOTE | 2019-03-07 16:57 | PROGRESS NOTE ---
DATE: 03/07/2019 INTERVAL HISTORY: Patient with significant flatus and some liquid stool output from his ostomy. Pain continues to improve slowly. Ambulating well. Pain reasonably controlled. No acute events. No new complaints. REVIEW OF SYSTEMS: Twelve point review of systems negative except as per interval history. LABS: WBC 14.3, hemoglobin 11.5, hematocrit 36.3, platelets 433,000. Sodium 150, potassium 3.7, BUN 16, creatinine 0.7. VITAL SIGNS: T-max 98.9 degrees, pulse 63, respirations 16, blood pressure 166/87, O2 saturation 95% on room air. PHYSICAL EXAMINATION: General: No acute distress. Vital signs: As above. HEENT: Normocephalic, atraumatic. Moist membranes. NG tube remains in place but clamped currently. Cardiovascular: Regular rate and rhythm. No murmurs noted. Pulmonary: Clear to auscultation bilaterally. No wheezing, rales, or rhonchi. Abdomen: Low midline incision bandaged. Bandage coming up a little bit. Some serosanguineous drainage, but otherwise incision looks okay. Ostomy in left lower quadrant with small amount of brown fluid in the bag. Bowel sounds approximately the same as yesterday, decreased but not entirely absent. Extremities: Peripheral pulses intact. No clubbing or cyanosis. Neurologic: Cranial nerves grossly intact. No focal deficits identified. Psychiatric: Normal mood and affect. Awake, alert, oriented x3. Skin: No new rashes or lesions. Surgical incision as above. ASSESSMENT AND PLAN: 1. Diverticulitis with perforation and early abscess. Status post exploratory laparotomy with sigmoid colon resection and ostomy placement by Dr. Trinidad 03/04. Doing well postop. Pain controlled. Beginning to have return of bowel function. No further fevers. Ostomy with a little output and significant flatus. Bowel sounds improving slowly. NG tube clamped today and starting on some liquids. If he does well with that, will hopefully be able to advance diet. Management as per Surgery. Continue antibiotics with Invanz. Abdominal culture still just gram-positive cocci, no further speciation yet. Blood cultures remain negative. 2. Hyperglycemia. A1c currently pending. No previous history of diabetes. Pretty minimal elevations overall, so relatively low suspicion for diabetes, but we will check him out. 3. Sepsis secondary to #1. On antibiotics as above and sepsis now resolved. Monitor. 4. Obesity. Patient has been counseled on diet and exercise. 5. Hyponatremia. The patient is starting some p.o. intake of fluids so we will hold off on any adjustments for now. If it worsens tomorrow, we will start him on some half-normal saline.
[2019-03-07] MEDS: SODIUM CHLORIDE 0.9% INJ SCH (23:24)
[2019-03-07] MEDS: INVANZ 1 GM/NS 1 GM/50 ML IVPB IV SCH (23:24)
[2019-03-08] MEDS: LR 1,000 ML IV SCH ×3 (02:21→21:05)
[2019-03-08] MEDS: OFIRMEV 1000 MG/ISOTONIC SOLN 1,000 MG/100 ML BOTTLE IV SCH ×4 (02:21→20:56)
[2019-03-08] MEDS: TORADOL IV SCH ×4 (02:21→20:56)
[2019-03-08] MEDS: DILAUDID IV PRN ×2 (04:08→12:43)
--- NOTE | 2019-03-08 05:44 | GENERAL SURGERY PROGRESS NOTE ---
DATE: 03/08/2019 SUBJECTIVE: Patient seems to be doing okay. He tolerated his tube being clamped. He has had ostomy output. There were some issues with ostomy issues yesterday, but it seems to be doing okay. OBJECTIVE: Vital Signs: Patient is currently afebrile. His vital signs stable. General: No acute distress. Cardiovascular: Regular rate and rhythm. Lungs: Grossly clear. Abdomen: Soft, appropriately tender. Ostomy appears viable. There appears to be either some mesentery or epiploic appendages that has come up with the ostomy, but the stoma itself appears to be viable and having output. ASSESSMENT AND PLAN: A 38-year-old gentleman, currently postoperative day #4 from Iris's procedure for perforated diverticulitis. Postop state: At this time, he seems to be doing okay. We will remove his NG tube and put him on a full liquid diet. We will transition over to p.o. pain medicine. cc: Red Berger MD
[2019-03-08] MEDS: MYLICON PO PRN (06:05)
[2019-03-08 07:21] LABS: BASO# 0.04 X1000 (0.0-0.2); BASO% 0.3 % (0.0-0.8); EOS# 0.37 X1000 (0.0-0.7); EOS% 3.1 % (0.0-10.0); HEMATOCRIT 32.3 % (42.0-52.0); IMM GRAN# 0.08 X1000 (0.0-0.04); IMM GRAN% 0.7 % (0.0-0.5); LYMPH% 16.8 % (20.5-51.1); MCH 27.8 PG (27-31); MCV 89.7 FL (81-99); MONO# 0.91 X1000 (0.11-0.59); MONO% 7.7 % (1.7-9.3); MPV 9.2 FL (7.4-10.4); NEUT# 8.49 X1000 (1.4-6.5); NEUT% 71.4 % (42.2-75.2); PLT 448 X1000 (130-400); RDW 12.3 % (11.5-14.5); WBC 11.89 X1000 (4.8-10.8)
[2019-03-08 07:42] LABS: BANDS 8 % (0-1); EOS 2 % (1-10); LYMPHS 14 % (21-51); MONO 6 % (1-9); SEGS 66 % (42-75)
[2019-03-08 07:47] LABS: AGAP 10; BUN 21 mg/dL (8-22); CALCIUM 8.1 mg/dL (8.8-10.2); CHLORIDE 106 mmol/L (98-107); COSMO 290; CREATININE 0.6 mg/dL (0.7-1.2); ESTIMATED GFR > 60; GLUCOSE 103 mg/dL (70-104); POTASSIUM 3.9 mmol/L (3.5-5.1); SODIUM 144 mmol/L (136-145); TCO2 28 mmol/L (25-35)
[2019-03-08 08:16] LABS: HEMOGLOBIN A1C 5.3 % (4.8-6.0)
[2019-03-08] MEDS: PERIDEX MT SCH ×2 (08:48→20:56)
[2019-03-08] MEDS: LOVENOX SUBQ SCH (08:49)
[2019-03-08] MEDS: NORCO-10 PO PRN ×3 (09:36→22:25)
[2019-03-08] MEDS: PEPCID IV SCH ×2 (11:49→21:06)
[2019-03-08] MEDS: AMPICILLIN 1 GM in NS 50 ML IV SCH ×3 (11:49→22:26)
--- NOTE | 2019-03-08 14:28 | PROGRESS NOTE ---
DATE: 03/08/2019 INTERVAL HISTORY: The patient continues to progress. Fair amount of liquid output from his ostomy. NG tube out and tolerating liquid diet thus far. No new complaints. No acute events overnight. REVIEW OF SYSTEMS: Twelve point review of systems negative except as per interval history. LABORATORY DATA: WBC 11.8, hemoglobin 10, hematocrit 32.3, platelets 448,000. Sodium 144, potassium 3.9, BUN 21, creatinine 0.6. A1c 5.3. VITAL SIGNS: T-max 99.4 degrees, pulse 81, respirations 18, blood pressure 153/82, O2 saturation 95% on room air. PHYSICAL EXAMINATION: General: No acute distress. Vital signs: As above. HEENT: Normocephalic, atraumatic. Moist mucous membranes. NG tube removed. Cardiovascular: Regular rate and rhythm. No murmurs noted. Pulmonary: Clear to auscultation bilaterally. No wheezing, rales, or rhonchi. Abdomen: Low midline incision bandaged. Ostomy in left lower quadrant with a fair amount of dark brown fluid in bag. Bowel sounds slightly decreased still. Extremities: Peripheral pulses intact. No clubbing, cyanosis. Neurologic: Cranial nerves grossly intact. No focal deficits identified. Psychiatric: Normal mood and affect. Awake, alert, oriented x3. ASSESSMENT AND PLAN: 1. Diverticulitis with perforation and early abscess. Status post exploratory laparotomy with sigmoid colon resection, ostomy placement by Dr. Trinidad 03/04/2019. Doing very well postop. Pain well controlled. NG tube out and tolerating a liquid diet. No further fevers. Abdominal culture growing out Enterococcus faecium which is pansensitive. The patient has been on Invanz but will transition to ampicillin for now and if discharges in the near future, can likely be changed to home oxacillin to finish treatment. Today is day 8 of antibiotics, would likely completed a 14-day course. 2. Hyperglycemia, likely stress induced. A1c within normal limits. Does not appear to be diabetic. 3. Sepsis secondary to #1, now resolved. 4. Obesity. Patient has been counseled on diet and exercise. 5. Hypernatremia, resolved. Monitor.
[2019-03-08] MEDS: SODIUM CHLORIDE 0.9% INJ SCH (21:06)
[2019-03-09] MEDS: PEPCID IV SCH ×2 (00:43→09:26)
[2019-03-09] MEDS: OFIRMEV 1000 MG/ISOTONIC SOLN 1,000 MG/100 ML BOTTLE IV SCH ×3 (01:15→14:13)
[2019-03-09] MEDS: TORADOL IV SCH ×3 (01:15→14:13)
[2019-03-09] MEDS: AMPICILLIN 1 GM in NS 50 ML IV SCH (04:50)
[2019-03-09] MEDS: NORCO-10 PO PRN ×3 (05:03→21:55)
--- NOTE | 2019-03-09 06:08 | GENERAL SURGERY PROGRESS NOTE ---
DATE: 03/09/2019 SUBJECTIVE: Patient seems to be doing okay. He tolerated his full liquid diet. He is having ostomy output. OBJECTIVE: Vital Signs: Patient is currently afebrile. His vital signs are stable. General: No acute distress. Cardiovascular: Regular rate and rhythm. Lungs: Grossly clear. Abdomen: Soft, appropriately tender. Ostomy is functioning and viable. Incision healing well, packing removed. LABORATORY: Reviewed from yesterday, white blood count is under 12. ASSESSMENT AND PLAN: A 38-year-old gentleman currently postoperative day #5 from Iris's procedure for perforated diverticulitis. Postoperative state. At this time, he is doing well. Will transition him over to p.o. antibiotics and a regular diet. Hopefully, if he can get some education on his ostomy, he can go home soon. cc: Red Berger MD
[2019-03-09 07:27] LABS: AGAP 10; BUN 16 mg/dL (8-22); CALCIUM 7.9 mg/dL (8.8-10.2); CHLORIDE 107 mmol/L (98-107); COSMO 284; CREATININE 0.6 mg/dL (0.7-1.2); ESTIMATED GFR > 60; GLUCOSE 100 mg/dL (70-104); POTASSIUM 3.9 mmol/L (3.5-5.1); SODIUM 142 mmol/L (136-145); TCO2 25 mmol/L (25-35)
[2019-03-09 09:14] LABS: BASO# 0.04 X1000 (0.0-0.2); BASO% 0.3 % (0.0-0.8); EOS# 0.35 X1000 (0.0-0.7); EOS% 2.8 % (0.0-10.0); HEMATOCRIT 25.1 % (42.0-52.0); HEMOGLOBIN 7.8 g/dL (14.0-18.0); IMM GRAN# 0.08 X1000 (0.0-0.04); IMM GRAN% 0.6 % (0.0-0.5); LYMPH# 1.87 X1000 (1.2-3.4); LYMPH% 14.9 % (20.5-51.1); MCH 27.7 PG (27-31); MCHC 31.1 g/dL (33-37); MONO# 0.74 X1000 (0.11-0.59); MONO% 5.9 % (1.7-9.3); MPV 8.7 FL (7.4-10.4); NEUT% 75.5 % (42.2-75.2); PLT 475 X1000 (130-400); RBC 2.82 XMIL (4.7-6.1); RDW 11.9 % (11.5-14.5); WBC 12.58 X1000 (4.8-10.8)
[2019-03-09] MEDS: LR 1,000 ML IV SCH ×2 (09:24→18:50)
[2019-03-09] MEDS: LOVENOX SUBQ SCH (09:26)
[2019-03-09] MEDS: AUGMENTIN PO SCH ×2 (09:26→21:49)
[2019-03-09] MEDS: PERIDEX MT SCH ×2 (09:26→21:49)
[2019-03-09] MEDS: DILAUDID IV PRN ×2 (09:30→17:25)
[2019-03-09] MEDS ORDERED: PRILOSEC PO ONE (19:22)
[2019-03-09 19:53] LABS: HEMATOCRIT 20.4 % (42.0-52.0); HEMOGLOBIN 6.3 g/dL (14.0-18.0)
--- NOTE | 2019-03-09 20:14 | PROGRESS NOTE ---
DATE: 03/09/2019 INTERVAL HISTORY: No acute events overnight. SUBJECTIVE: Mr. Williamson has been tolerating oral diet well. He states that usually his pain is well controlled, but sometimes when he tries to come out of bed, his belly hurts. He states he has been noticing black output through the ostomy. VITALS: Currently temperature of 98.4 degrees, pulse 85, respiratory rate 14, blood pressure 140/60, saturating 99% on room air. PHYSICAL EXAMINATION: Not in acute distress. Oral cavity is moist.Lungs: Air entry bilaterally equal. No wheeze or crackles. S1, S2 normal. No murmur or gallop. Abdomen: Soft. Mild tenderness around incision. He has infraumbilical incision with danielle on. He also has a left lower quadrant ostomy which has been recently changed. There is no output. Active bowel sounds. Extremity: No lower extremity edema. She is alert and oriented x3. LABS: Suggestive of mild leukocytosis, drop in hemoglobin, normal platelet count. Normal electrolytes. No positive microbiological data except abscess fluid growing Enterococcus faecium. ASSESSMENT AND PLAN: 1. Diverticulitis with sigmoid diverticulitis with perforation and early abscess, status post exploratory laparotomy with sigmoid colon resection and ostomy placement on March 04. His postoperative course has been rather unremarkable. He is tolerating regular diet. I will stop intravenous fluids, intravenous antibiotics and intravenous pain medication and start him on oral antibiotics. Today is day 9 of antibiotics. The patient and his mother have lots of questions regarding ostomy care and wound care with danielle. I asked them to have discussion about these questions with the surgery team. 2. Anemia. He has acute drop in his hemoglobin. I will follow up repeat hemoglobin. He has been on intravenous Ketoralac with a black ostomy output. I will stop intravenous ketorolac and keep him on intravenous proton pump inhibitors every 12 hours prophylactically as I follow up with hemoglobin. He does not have a tachycardia or hypotension at the moment and does not need any blood transfusion at the moment. 3. Sepsis on presentation. Electrolyte disturbance including hypernatremia have resolved. 4. Disposition- Once the patient gets his questions related to ostomy care and wound answered. He could be discharged home on oral antibiotics and oral pain medication within 24 hours. Plan of care discussed with the patient. He is in agreement. All of his questions have been answered. cc: Clint Tolentino MD
[2019-03-09] MEDS: PROTONIX IV SCH (21:49)
[2019-03-09] MEDS: SODIUM CHLORIDE 0.9% INJ SCH (21:50)
[2019-03-10] MEDS: NORCO-10 PO PRN ×3 (04:36→21:35)
--- NOTE | 2019-03-10 06:51 | GENERAL SURGERY PROGRESS NOTE ---
DATE: 03/10/2019 SUBJECTIVE: The patient is having more dark tarry stools. His hematocrit dropped from 32 to 20. He has not been tachycardic. He has not had any complaints, although his heart rate gotten up into the 90s. He was on Toradol, which was stopped and he was on Lovenox, both of those have been stopped. He has been started on Protonix twice a day. OBJECTIVE: Vital Signs: Patient is currently afebrile. His vital signs are stable. General: No acute distress. Cardiovascular: Regular rate and rhythm. Lungs: Grossly clear. Abdomen: Soft, appropriately tender. Incision is healing well. Ostomy appears viable. There is some dark liquid stool. LABORATORY: As noted above. Most recent hematocrit is 20. Labs for this morning are pending. ASSESSMENT AND PLAN: A 38-year-old gentleman status post Iris's procedure for perforated diverticulitis. Postoperative state. At this time continue to monitor him. His anemia has worsened. He is having some dark output. Will need to repeat his hematocrit. If he starts getting tachycardic, may need to consider transfusion, but will continue to support him through this. cc: Red Berger MD
[2019-03-10] MEDS ORDERED: PRILOSEC PO SCH (07:00)
[2019-03-10 07:43] LABS: BASO# 0.04 X1000 (0.0-0.2); BASO% 0.3 % (0.0-0.8); EOS# 0.33 X1000 (0.0-0.7); EOS% 2.6 % (0.0-10.0); HEMATOCRIT 16.7 % (42.0-52.0); IMM GRAN# 0.27 X1000 (0.0-0.04); IMM GRAN% 2.1 % (0.0-0.5); LYMPH# 2.17 X1000 (1.2-3.4); LYMPH% 16.9 % (20.5-51.1); MCH 27.1 PG (27-31); MCHC 30.5 g/dL (33-37); MCV 88.8 FL (81-99); MONO# 0.98 X1000 (0.11-0.59); MONO% 7.6 % (1.7-9.3); MPV 9.6 FL (7.4-10.4); NEUT# 9.06 X1000 (1.4-6.5); NEUT% 70.5 % (42.2-75.2); PLT 448 X1000 (130-400); RBC 1.88 XMIL (4.7-6.1); RDW 11.8 % (11.5-14.5); WBC 12.85 X1000 (4.8-10.8)
[2019-03-10 07:45] LABS: HEMOGLOBIN 5.1 g/dL (14.0-18.0)
[2019-03-10] MEDS ORDERED: NS 500 ML IV ONE ×2 (07:52→10:00)
[2019-03-10] MEDS: PERIDEX MT SCH ×2 (08:03→21:13)
[2019-03-10] MEDS: AUGMENTIN PO SCH (08:03)
[2019-03-10] MEDS: PROTONIX IV SCH ×2 (08:03→21:35)
[2019-03-10] MEDS: SODIUM CHLORIDE 0.9% INJ SCH ×2 (08:04→21:35)
[2019-03-10] MEDS ORDERED: FENTANYL ONE ×2 (10:41→12:18)
--- NOTE | 2019-03-10 10:57 | GASTROENTEROLOGY CONSULTATION ---
DATE: 03/10/2019 REASON FOR CONSULTATION: GI bleed, melena. HISTORY OF PRESENT ILLNESS: Mr. Arvind Williamson is a 38-year-old gentleman with no significant past medical history, who presented on 03/01/2019 with acute diverticulitis complicated by perforation, abscess requiring emergent exploratory laparotomy with sigmoid resection, Iris's pouch and descending end-colostomy. The patient has been doing well postoperatively, however, has reported persistent black tarry stools in his colostomy bag with downtrending hemoglobin since the surgery on 03/04/2019. His hemoglobin dropped from approximately 13.9 on 03/01/2019 to 5.1 this morning. He reports some incisional pain. Otherwise, denies any other symptoms including nausea, vomiting, bright red blood per rectum or in his ostomy, dizziness, lightheadedness, shortness of breath or chest pain. He does not take any NSAIDs at home. No prior EGD in the past or colonoscopy. He does have multiple second-degree relatives, particularly his maternal grandmother and her siblings, who had colon cancer. He has not had a colonoscopy in the past. REVIEW OF SYSTEMS: As per HPI, otherwise 12 point review of systems is negative. PAST MEDICAL HISTORY: None. PAST SURGICAL HISTORY: Sigmoid resection with Iris pouch and end-colostomy on 03/04/2019. HOME MEDICATIONS: None. ALLERGIES: Cefaclor. FAMILY HISTORY: Grandmother and her siblings with colon cancer. No first- degree relatives. SOCIAL HISTORY: No smoking, alcohol. He does smoke marijuana. PHYSICAL EXAMINATION: Vital Signs: Temperature is 98.3 degrees, heart rate of 93, respiratory rate 16, blood pressure 156/61, O2 saturation 98% on room air. General: Patient is awake, alert, oriented, in no acute distress. HEENT: Sclerae anicteric. Moist mucous membranes. Pale conjunctivae. Neck: Supple. No JVD or lymphadenopathy. Cardiac: Mildly tachycardic, regular. No murmurs. Lungs: Clear to auscultation bilaterally. Abdomen: Nondistended. Midline incision with dressing clean, dry, and intact. Left lower quadrant ostomy with protruding tissue and black tarry stool in the ostomy bag. Mild diffuse tenderness to palpation throughout. No rebound or guarding. Extremities: No clubbing, cyanosis, or edema. Skin: Warm and well perfused, pale. LABORATORY DATA: White count of 12.85, hemoglobin is 5.1, MCV is 88.8, platelets of 448,000. Chemistries from yesterday were within normal limits. Abdominal culture showed enterococcus faecium group D. ASSESSMENT AND PLAN: Mr. Arvind Williamson is a 38-year-old gentleman who presented with complicated sigmoid diverticulitis with perforation and abscess, who presents to the GI service with acute gastrointestinal bleed with black tarry stools. His hematocrit has dropped significantly down to 5.1 hemoglobin. He has been receiving Toradol IV over the last several days, which has been stopped. He is currently on a PPI 40 mg IV b.i.d., Augmentin for antibiotics for peritonitis, antiemetics, simethicone 80 four times a day and [place] for pain control. The patient had breakfast earlier this morning. He is not having any nausea or vomiting. Recommend diagnostic EGD after a bag of blood is hanging. We will plan for transfusion for 2 to 3 units of packed red blood cells. Continue antibiotics for his peritonitis and diverticulitis. Trend his hemoglobin and hematocrit every 6 to 8 hours. Transfuse as needed to maintain a hemoglobin between 7 and 8. We will hold any blood thinners or NSAIDs. Continue IV fluids as per primary team. I have made him n.p.o. for now. Further recommendations post endoscopy. Plan discussed with family and the patient. Will follow with you. Please call with any questions or concerns. # GI bleed # Melena # Blood loss anemia # Complicated diverticulitis with perforation # Peritonitis [facility]
[2019-03-10] MEDS ORDERED: EPINEPHRINE SYRINGE ONE (11:59)
[2019-03-10] MEDS ORDERED: DIPRIVAN 1% 500 MG/50 ML BOTTLE ONE (12:18)
[2019-03-10] MEDS ORDERED: XYLOCAINE-MPF 2% ONE (12:18)
--- NOTE | 2019-03-10 12:22 | ENDOSCOPY OPERATIVE NOTE ---
[facility] ENDOSCOPY OPERATIVE NOTE , EGD PROCEDURE REPORT EXAM DATE: 03/10/2019 PATIENT NAME: Arvind Williamson MR#: [id number] BIRTHDATE: 1980 ATTENDING: Blas Batista MD STATUS: inpatient VISION REHABILITATION THERAPIST: INDICATIONS: The patient is a 38 yr old male here for an EGD due to melena and acute post hemorrhagi c anemia. PROCEDURE PERFORMED: EGD w/ control of bleeding MEDICATIONS: General; Per Anesthesia ESTIMATED BLOOD LOSS: None CONSENT: The patient understands the risks and benefits of the procedure and understands that these r isks include, but are not limited to: sedation, allergic reaction, infection, perforation and/or bleeding. Alternative means of evaluation and treatment include, among others: physical exam, x-rays, and/or surgical intervention. The patient elects to proceed with this endoscopic procedure. DESCRIPTION OF PROCEDURE: During pre-op preparation period all mechanical and medical equipment was c hecked for proper function. Hand hygiene and appropriate measures for infection prevention was taken. After the risks, benefits and alternatives of the procedure were thoroughly explained, Informed consent was verified, confirmed and timeout was successfully executed by the treatment team. The patient was anesthetized with topical anesthesia and the PA49-w91 ([id number]) endoscope was introduced through the mouth and advanced to the second portion of the duoden um. Retroflexion was performed in the stomach and revealed no abnormalities. The gastroscope was then slowly withdraw n and removed. The patient's toleration of the procedure was excellent. ESOPHAGUS: The mucosa of the esophagus appeared normal. The z-line was noted at 45cm from the incis ors. The z-line appeared normal. STOMACH: Four non-bleeding, punctate and clean-based ulcers ranging between 3-7mm in size were found in the gastric antrum. A single non-bleeding ulcer measuring 20mm in size with a pigmented spot was found in the g astric antrum. Submucosal injection of 3ml of epinephrine 1:10,000 was injected around the ulcer with good treatment effect. Cautery was applied to the site. There was a moderate amount of residual food in the gastric body. Random g astric biopsies were obtained with cold biopsy forceps to rule out H pylori. ADVERSE EVENTS: There were no complications. IMPRESSIONS: 1. The mucosa of the esophagus appeared normal 2. The z-line was noted at 45cm from the incisors 3. Four ulcers ranging between 3-7mm in size were found in the gastric antrum 4. Single ulcer measuring 20mm in size was found in the gastric antrum; Submucosal injection of 3ml of epinephrine 1:10,000 was performed around the ulcer; cautery was applied to the site 5. Food residue in the gastric body RECOMMENDATIONS: 1. Await biopsy results 2. Continue IV PPI BID 3. Clear liquid diet 4. Avoid blood thinners and NSAIDs 5. Check post-transfusion H/H in 2 hours, transfuse prn for goal hgb 7-8 REPEAT EXAM: Return in 3 months for EGD. Blas Batista MD eSigned: Blas Batista MD 03/10/2019 12:21 PM CC: CPT CODES: 61441 Upper gastrointestinal endoscopy including esophagus, stomach, and either the du odenum and/or jejunum as appropriate; with control of bleeding, any method ICD CODES: 578.1 Blood in stool 285.1 Acute posthemorrhagic anemia The ICD and CPT codes recommended by this software are interpretations from the data that the [facility] staff has captured with the software. The verification of the translation of this report to the ICD and CPT co galdino and modifiers is the sole responsibility of the health care institution and practicing physician where this report was generated. [employer] will not be held responsible for the validity of the ICD and CPT codes i ncluded on this report. AMA assumes no liability for data contained or not contained herein. CPT is a registered tra demark of the [employer]. PATIENT NAME: Arvind Williamson MR#: [id number]
[2019-03-10] MEDS: ZOSYN 3.375 GM in NS 50 ML IV SCH ×2 (13:55→21:13)
[2019-03-10 14:23] LABS: HEMATOCRIT 21.4 % (42.0-52.0); HEMOGLOBIN 6.7 g/dL (14.0-18.0)
--- NOTE | 2019-03-10 15:07 | PROGRESS NOTE ---
DATE: 03/10/2019 SUBJECTIVE: The patient reports feeling fine. He came from endoscopy a couple of hours ago. He is feeling fine right now, not in any pain. OBJECTIVE: Vital Signs: Temperature 98.3 degrees, heart rate 92, respiratory rate 16, blood pressure 147/69, O2 saturation 94% on room air. General: This is a 38-year-old, male, lying in bed in no acute distress. Cardiovascular: S1, S2 heard. No murmurs, gallops, or rubs. Regular rate and rhythm. Respiratory: Clear bilaterally to auscultation. No work of breathing or using accessory muscles. Abdomen: There is an infraumbilical incision with danielle only with mild tenderness to palpation around it. The patient has also left lower quadrant ostomy with no output. Bowel sounds present. No organomegaly. No signs of peritoneal irritation. Extremities: No clubbing, cyanosis, or edema. Peripheral pulses present in both legs. Neurological: Patient is alert and oriented x3. Moves 4 extremities. LABORATORY DATA: White cell count 12.85, hemoglobin 6.7, but in the morning has been 5.1. Hematocrit 31.4, with platelets 448,000. ASSESSMENT AND PLAN: 1. Diverticulitis with sigmoid diverticulitis with perforation and early abscess, status post exploratory laparotomy with sigmoid colon resection and ostomy placement on 03/04/2019. From that standpoint, patient is doing okay. General Surgery is following this patient. He has been on 9 days of antibiotics and will complete at least a couple of weeks of those. 2. Anemia secondary to blood loss. Patient has reported black stools yesterday and today, the hemoglobin has been checked and now has been 5.1. In that regard, we have consulted GI, who quickly performed an upper endoscopy which basically showed 4 ulcers ranging between 3 to 7 mm in size in the gastric antrum which were cauterized. There was food residual in the gastric body. At this point, we will stop Toradol. We will continue with Protonix 40 mg IV q.12 hours and sucralfate. We will continue to monitor this patient closely. 3. Disposition. The patient is being following by General Surgery. My plan is to keep him over the weekend, and if on Wednesday, patient feels okay, laboratory data is okay, and okay with General Surgery, he can be discharged on Wednesday. cc: Amando Barcenas MD
[2019-03-10 21:09] LABS: HEMATOCRIT 22.8 % (42.0-52.0); HEMOGLOBIN 7.3 g/dL (14.0-18.0)
[2019-03-11] MEDS: ZOSYN 3.375 GM in NS 50 ML IV SCH ×4 (02:04→20:13)
[2019-03-11] MEDS: PROTONIX IV SCH ×2 (06:56→20:12)
[2019-03-11] MEDS: SODIUM CHLORIDE 0.9% INJ SCH (06:57)
--- NOTE | 2019-03-11 07:03 | GENERAL SURGERY PROGRESS NOTE ---
DATE: 03/11/2019 SUBJECTIVE: Patient did have continued decrease in his hematocrit, went down to 16 yesterday. He was transfused blood and underwent an EGD which showed multiple bleeding ulcers which were stopped. He has been doing okay since then, having no major issues. OBJECTIVE: Vital Signs: Patient is currently afebrile. His vital signs are stable. General: No acute distress. Cardiovascular: Regular rate and rhythm. Lungs: Grossly clear. Abdomen: Soft, appropriately tender. Incision is healing okay. Some mild serosanguineous drainage. Ostomy is viable, still with some dark output. ASSESSMENT AND PLAN: A 38-year-old gentleman status post Iris's procedure for perforated diverticulitis and now gastrointestinal bleed from gastric ulcers. 1. Postoperative state. At this time, continue to monitor him and continue regular diet. 2. Gastrointestinal bleed. At this time, he is on Protonix twice a day. We will need to monitor the next couple days to make sure everything stays stable. We will advance his diet to a GI soft diet and we will continue to monitor him closely. cc: Red Berger MD
[2019-03-11 07:49] LABS: BASO# 0.04 X1000 (0.0-0.2); BASO% 0.3 % (0.0-0.8); EOS# 0.25 X1000 (0.0-0.7); EOS% 1.8 % (0.0-10.0); HEMATOCRIT 22.7 % (42.0-52.0); HEMOGLOBIN 7.3 g/dL (14.0-18.0); IMM GRAN# 0.24 X1000 (0.0-0.04); IMM GRAN% 1.7 % (0.0-0.5); LYMPH# 2.13 X1000 (1.2-3.4); MCH 27.8 PG (27-31); MCHC 32.2 g/dL (33-37); MCV 86.3 FL (81-99); MONO% 6.3 % (1.7-9.3); MPV 9.8 FL (7.4-10.4); NEUT# 10.68 X1000 (1.4-6.5); NEUT% 74.9 % (42.2-75.2); PLT 408 X1000 (130-400); RBC 2.63 XMIL (4.7-6.1); RDW 12.8 % (11.5-14.5); WBC 14.24 X1000 (4.8-10.8)
[2019-03-11 07:59] LABS: AGAP 9; BUN 11 mg/dL (8-22); CALCIUM 8.3 mg/dL (8.8-10.2); CHLORIDE 103 mmol/L (98-107); COSMO 275; CREATININE 0.7 mg/dL (0.7-1.2); ESTIMATED GFR > 60; GLUCOSE 103 mg/dL (70-104); POTASSIUM 4.1 mmol/L (3.5-5.1); SODIUM 138 mmol/L (136-145); TCO2 26 mmol/L (25-35)
[2019-03-11] MEDS: PERIDEX MT SCH ×2 (09:12→20:13)
[2019-03-11] MEDS ORDERED: NS 500 ML IV ONE (10:03)
[2019-03-11] MEDS: NORCO-10 PO PRN ×2 (11:22→19:01)
--- NOTE | 2019-03-11 11:34 | PROGRESS NOTE ---
DATE: 03/11/2019 SUBJECTIVE: Patient reports feeling fine. Abdominal pain is under control. OBJECTIVE: Vital Signs: Temperature 98.7 degrees, heart rate 85, respiratory rate 16, blood pressure 165/70, O2 saturation 95% on room air. General: This is a 38-year-old male, lying in bed, in no acute distress. Cardiovascular: S1, S2 heard. No murmurs, gallops, or rubs. Regular rate and rhythm. Respiratory: Clear bilaterally to auscultation. No work of breathing or using accessory muscles. Abdomen: Infraumbilical incision with danielle and mild tenderness to palpation around it. The patient has a left lower quadrant ostomy with dark drainage. Bowel sounds present. No organomegaly. No signs of peritoneal irritation. Extremities: No clubbing, cyanosis, or edema. Peripheral pulses present in both legs. Neurological: Patient alert and oriented x3. Moves 4 extremities. LABORATORY DATA: White cell count 14.24, hemoglobin 7.3, hematocrit 22.7, platelets 408,000. Normal BMP. ASSESSMENT AND PLAN: 1. Anemia secondary to blood loss. The patient continues to have dark stool from ostomy. He has been transfused 3 units of blood and hemoglobin is only 7.3 today but has dropped to 5.1 yesterday. He has been scoped yesterday and he was found to have 4 ulcers in the gastric antrum and also a single ulcer 20 mm in the gastric antrum as well. Those were cauterized. At this point, considering his hemoglobin of 7.3, we are going to transfuse 1 more unit of blood. We will check hemoglobin and hematocrit q.8 hours. We will transfuse as needed. He is currently on Protonix 40 mg IV q.12 hours and sucralfate. 2. Diverticulitis with sigmoid diverticulitis with perforation and early abscess, status post exploratory laparotomy with sigmoid colon resection and ostomy placement. Today is postoperative day #11. General Surgery is following this patient. We will follow recommendations. 3. Disposition. At this point, I am planning to keep this patient until Wednesday to make sure that he is not having any more blood loss. We will continue to monitor this patient closely. cc: Amando Barcenas MD
--- NOTE | 2019-03-11 23:17 | PROVIDER PROGRESS NOTE ---
Progress Note S: Transfused 3 units pRBCs yesterday. No acute overnight events. Patient tolerated GI soft diet this AM. He continues to have melena in colostomy bag, but reports significant improvement in abdominal pain. O: Last Vital Signs Temp 98.3 F 03/11/19 20:55 Pulse 79 03/11/19 20:55 Resp 16 03/11/19 20:55 BP 143/63 03/11/19 20:55 Pulse Ox 97 03/11/19 20:55 Height 5 ft 11 in Weight 254 lb 9 oz GEN: awake, alert, NAD, pale HEENT: anicteric, MMM NECK: supple, no JVD PULM: CTAB, no wheezing CV: RRR, no murmurs ABD: ND, midline incision with dressing c/d/i, LLQ ostomy with melena in bag EXT: no cce NEURO: nonfocal LABS: 03/11/19 03/11/19 07:00 07:00 WBC 14.24 H Hgb 7.3 L Plt Count 408 H Sodium 138 Potassium 4.1 Chloride 103 Carbon Dioxide 26 BUN 11 Creatinine 0.7 EGD 03/10 ESOPHAGUS: The mucosa of the esophagus appeared normal. The z-line was noted at 45cm from the incisors. The z-line appeared normal. STOMACH: Four non-bleeding, punctate and clean-based ulcers ranging between 3- 7mm in size were found in the gastric antrum. A single non-bleeding ulcer measuring 20mm in size with a pigmented spot was found in the gastric antrum. Submucosal injection of 3ml of epinephrine 1:10,000 was injected around the ulcer with good treatment effect. Cautery was applied to the site. There was a moderate amount of residual food in the gastric body. Random gastric biopsies were obtained with cold biopsy forceps to rule out H pylori. DUODENUM: was normal ASSESSMENT AND PLAN: Mr. Arvind Williamson is a 38-year-old gentleman who presented with sigmoid diverticulitis c/b perforation and abscess requiring emergent ex-lap with sigmoid resection, Iris's pouch and descending end-colostomy. GI consulted for UGIB found to have multiple gastric ulcers s/p epinephrine and cautery of largest antral ulcer (2cm). He is s/p 3 units pRBC. Hgb today is stable at 7.3. He is on PPI IV BID and is tolerating GI soft diet. VSS. His current melena likely represents old blood and should begin to clear. Gastric biopsies to rule out H pylori are pending. His gastric ulcers are likely secondary to IV toradol use. Will continue to avoid NSAIDs and blood thinners. Recommend SCDs for DVT ppx. Trending his H/H, transfuse prn for goal hgb 7-8 # UGIB 2/2 bleeding gastric ulcers # Sigmoid diverticulitis # Peritonitis # Acute blood loss anemia # Leukocytosis # Thrombocytosis: reactive Will follow with you. Please call with questions.
[2019-03-12] MEDS: ZOSYN 3.375 GM in NS 50 ML IV SCH ×4 (03:58→19:43)
[2019-03-12] MEDS: PROTONIX IV SCH ×2 (06:50→19:42)
[2019-03-12] MEDS: SODIUM CHLORIDE 0.9% INJ SCH ×2 (06:50→19:42)
--- NOTE | 2019-03-12 06:58 | GENERAL SURGERY PROGRESS NOTE ---
DATE: 03/12/2019 SUBJECTIVE: The patient says he is feeling better. He did get another unit of blood yesterday. OBJECTIVE: Vital Signs: The patient is currently afebrile. His vital signs are stable. General Examination: No acute distress. Cardiovascular: Regular rate and rhythm. Lungs: Grossly clear. Abdomen: Soft. Appropriately tender. Ostomy appears viable with some output still dark. ASSESSMENT AND PLAN: A 38-year-old gentleman status post Iris's procedure for perforated diverticulitis, now with a gastrointestinal bleed from gastric ulcers. 1. Postoperative state. At this time, I would like to continue to monitor, given his gastrointestinal bleed. His ostomy output is down somewhat, so we will need to continue to monitor. He is passing gas through his appliance so I think he has return of bowel function but we will continue to monitor. 2. Gastrointestinal bleed. At this time, continue his Protonix twice a day. We will follow up his hematocrit. He did get another unit of blood yesterday. cc: Red Berger MD
[2019-03-12 07:36] LABS: BASO# 0.05 X1000 (0.0-0.2); BASO% 0.4 % (0.0-0.8); EOS# 0.31 X1000 (0.0-0.7); EOS% 2.5 % (0.0-10.0); HEMATOCRIT 26.1 % (42.0-52.0); HEMOGLOBIN 8.5 g/dL (14.0-18.0); IMM GRAN# 0.29 X1000 (0.0-0.04); IMM GRAN% 2.3 % (0.0-0.5); LYMPH# 1.89 X1000 (1.2-3.4); LYMPH% 15.1 % (20.5-51.1); MCH 28.3 PG (27-31); MCHC 32.6 g/dL (33-37); MONO# 0.97 X1000 (0.11-0.59); MONO% 7.7 % (1.7-9.3); MPV 9.8 FL (7.4-10.4); NEUT# 9.02 X1000 (1.4-6.5); PLT 434 X1000 (130-400); RDW 13.3 % (11.5-14.5); WBC 12.53 X1000 (4.8-10.8)
[2019-03-12 07:53] LABS: AGAP 12; BUN 8 mg/dL (8-22); CALCIUM 8.7 mg/dL (8.8-10.2); CHLORIDE 103 mmol/L (98-107); COSMO 278; CREATININE 0.7 mg/dL (0.7-1.2); ESTIMATED GFR > 60; GLUCOSE 103 mg/dL (70-104); POTASSIUM 4.1 mmol/L (3.5-5.1); SODIUM 140 mmol/L (136-145); TCO2 25 mmol/L (25-35)
[2019-03-12] MEDS: PERIDEX MT SCH ×3 (08:24→22:25)
[2019-03-12] MEDS: NORCO-10 PO PRN ×3 (08:24→22:25)
--- NOTE | 2019-03-12 10:02 | PROGRESS NOTE ---
DATE: 03/12/2019 SUBJECTIVE: Patient reports feeling fine. According to nursing staff, the colostomy bag still has some dark stools. OBJECTIVE: Vital Signs: Temperature 98.6 degrees, heart rate 79, respiratory rate 16, blood pressure 151/83. O2 saturation 95% on room air. General: This is a 38-year-old male, lying in bed, in no acute distress. Cardiovascular: S1 and S2 heard. No murmurs, gallops, or rubs. Regular rate and rhythm. Respiratory: Clear bilaterally to auscultation. No work of breathing or using accessory muscles. Abdomen: Infraumbilical incision with danielle. Mild tenderness to palpation around it. The patient has a left lower quadrant ostomy with still some dark drainage present. Bowel sounds present. No organomegaly. No signs of peritoneal irritation. Extremities: No clubbing, cyanosis, or edema. Peripheral pulses present in both legs. Neurological: Patient alert, oriented x3. Moves 4 extremities. LABORATORY DATA: Reviewed. Hemoglobin is 8.5 today with white cell count 12,000. ASSESSMENT AND PLAN: 1. Anemia secondary to blood loss. We have transfused 1 unit of blood. He has received a total of 4 units in the last 48 hours. Hemoglobin is more stable. At this point, we will continue to monitor CBC. 2. Diverticulitis with sigmoid diverticulitis and perforation and early abscess status post exploratory laparotomy with sigmoid colon resection and ostomy placement. Today is postoperative day #12. General Surgery following this patient. They think that this patient has return of bowel function. We will continue to monitor this patient. We will discharge this patient once he is cleared by General Surgery. DISPOSITION: I am planning to keep this patient until tomorrow and see how the hemoglobin is doing. Will ultimately see for how long General Surgery plans to keep this patient over here. cc: Amando Barcenas MD
--- NOTE | 2019-03-12 16:37 | PROVIDER PROGRESS NOTE ---
Progress Note S: No acute overnight events. He was transfused 1 unit pRBC yesterday. He says that he is starting to feel more like himself today. No N/V/F, abdominal pain. +flatus. Melena in ostomy is becoming thinner. O: Last Vital Signs Temp 98.2 F 03/12/19 15:10 Pulse 79 03/12/19 15:10 Resp 16 03/12/19 15:10 BP 139/69 03/12/19 15:10 Pulse Ox 96 03/12/19 15:10 Height 5 ft 11 in Weight 254 lb 9 oz GEN: awake, alert, NAD, pale HEENT: anicteric, MMM NECK: supple, no JVD PULM: CTAB, no wheezing CV: RRR, no murmurs ABD: ND, midline incision with dressing c/d/i, LLQ ostomy with minimal melenic fluid EXT: no cce NEURO: nonfocal LABS: 03/12/19 03/12/19 06:51 06:51 WBC 12.53 H Hgb 8.5 L D Plt Count 434 H Sodium 140 Potassium 4.1 Chloride 103 Carbon Dioxide 25 Anion Gap 12 BUN 8 Creatinine 0.7 Glucose 103 EGD 03/10 ESOPHAGUS: The mucosa of the esophagus appeared normal. The z-line was noted at 45cm from the incisors. The z-line appeared normal. STOMACH: Four non-bleeding, punctate and clean-based ulcers ranging between 3- 7mm in size were found in the gastric antrum. A single non-bleeding ulcer measuring 20mm in size with a pigmented spot was found in the gastric antrum. Submucosal injection of 3ml of epinephrine 1:10,000 was injected around the ulcer with good treatment effect. Cautery was applied to the site. There was a moderate amount of residual food in the gastric body. Random gastric biopsies were obtained with cold biopsy forceps to rule out H pylori. DUODENUM: was normal ASSESSMENT AND PLAN: Mr. Arvind Williamson is a 38-year-old gentleman who presented with sigmoid diverticulitis c/b perforation and abscess requiring emergent ex-lap with sigmoid resection, Iris's pouch and descending end-colostomy. GI consulted for UGIB s/p EGD on 03/10 that showed multiple gastric antral ulcers s/p epinephrine and cautery of largest antral ulcer (2cm). He is s/p 4 units pRBC. Hgb today is 8.5 from 7.3. He is on PPI IV BID and is tolerating GI soft diet. VSS. Gastric biopsies to rule out H pylori are pending. His gastric ulcers are likely secondary to IV toradol use. Will continue to avoid NSAIDs and blood thinners. Recommend SCDs for DVT ppx. Trending his H/H daily, transfuse prn for goal hgb 7-8 # UGIB 2/2 bleeding gastric ulcers # Perforated sigmoid diverticulitis # Peritonitis # Acute blood loss anemia # Leukocytosis # Thrombocytosis: reactive Will follow with you. Please call with questions.
[2019-03-13] MEDS: ZOSYN 3.375 GM in NS 50 ML IV SCH ×3 (02:36→14:13)
[2019-03-13 06:44] LABS: BASO# 0.06 X1000 (0.0-0.2); BASO% 0.5 % (0.0-0.8); EOS# 0.27 X1000 (0.0-0.7); EOS% 2.1 % (0.0-10.0); HEMATOCRIT 26.6 % (42.0-52.0); HEMOGLOBIN 8.6 g/dL (14.0-18.0); IMM GRAN# 0.24 X1000 (0.0-0.04); IMM GRAN% 1.9 % (0.0-0.5); LYMPH# 2.48 X1000 (1.2-3.4); LYMPH% 19.3 % (20.5-51.1); MCH 28.3 PG (27-31); MCHC 32.3 g/dL (33-37); MCV 87.5 FL (81-99); MONO# 1.09 X1000 (0.11-0.59); MONO% 8.5 % (1.7-9.3); MPV 9.6 FL (7.4-10.4); NEUT# 8.69 X1000 (1.4-6.5); NEUT% 67.7 % (42.2-75.2); PLT 484 X1000 (130-400); RBC 3.04 XMIL (4.7-6.1); RDW 13.5 % (11.5-14.5); WBC 12.83 X1000 (4.8-10.8)
[2019-03-13] MEDS: PROTONIX IV SCH (06:44)
[2019-03-13] MEDS: SODIUM CHLORIDE 0.9% INJ SCH (06:45)
[2019-03-13 07:02] LABS: AGAP 14; BUN 9 mg/dL (8-22); CALCIUM 8.6 mg/dL (8.8-10.2); CHLORIDE 103 mmol/L (98-107); COSMO 283; CREATININE 0.9 mg/dL (0.7-1.2); ESTIMATED GFR > 60; GLUCOSE 117 mg/dL (70-104); POTASSIUM 3.7 mmol/L (3.5-5.1); SODIUM 142 mmol/L (136-145); TCO2 25 mmol/L (25-35)
--- NOTE | 2019-03-13 07:03 | GENERAL SURGERY PROGRESS NOTE ---
DATE: 03/13/2019 SUBJECTIVE: The patient seems to be doing a little bit better. He wants to try to go home. OBJECTIVE: Vital Signs: The patient is currently afebrile. His vital signs are stable. General: No acute distress. Cardiovascular: Regular rate and rhythm. Lungs: Grossly clear. Abdomen: Soft, appropriately tender. Incision is healing well. Ostomy viable with some output. ASSESSMENT AND PLAN: A 38-year-old male status post Iris's procedure for perforated diverticulitis. Perforated diverticulitis. At this time, seems to be doing okay. He has had return of bowel function, although his actual quantity of ostomy output has decreased. He still having flatus coming out of the appliance. He is not sick to his stomach, so I think it is probably okay for him to go home. His gastrointestinal bleed has seemed to stabilize. He will need to stay on Protonix. I will have Dr. Trinidad come by and see him again today, but I think from a surgical point of view, he could probably be discharged home. cc: Red Berger MD
[2019-03-13 07:20] LABS: EOS 2 % (1-10); LYMPHS 20 % (21-51); MONO 8 % (1-9); SEGS 70 % (42-75)
[2019-03-13] MEDS: PERIDEX MT SCH (09:40)
[2019-03-13] MEDS: NORCO-10 PO PRN (09:48)
--- NOTE | 2019-03-13 13:47 | GASTROENTEROLOGY PROGRESS NOTE ---
DATE: 03/13/2019 SUBJECTIVE: Mr. Williamson is a 38-year-old male resting in bed. The patient complained of abdominal pain and noticing dark tarry stools in the ostomy. OBJECTIVE: Vital Signs: Temperature is 99.5 degrees, pulse is 81, respirations 20, blood pressure 127/71, oxygen saturation 98% on room air. Patient's weight is 254 pounds. BMI is 35.5 kg/m2. General: He is alert, oriented x3, in no acute distress. HEENT: Pale conjunctivae. No icterus. PERRL. Neck: Supple. Lungs: Clear to auscultation in the anterior and posterior hayward. Cardiovascular: Regular rate and rhythm. Abdomen: Obese, tender in the incision area. Dressing intact and dry. Has a left lower quadrant ostomy with dark tarry liquid stools. Extremities: No clubbing, no cyanosis, no edema. Pedal pulses 2+ present bilaterally. Neurologic: Alert, oriented x3. LABORATORY DATA: WBCs is 12.83, RBC is 3.04, hemoglobin is 8.6, hematocrit is 26.6, platelet count is 484,000. Sodium 142, potassium 3.7, chloride 103, carbon dioxide 25, anion gap 14, BUN is 6, creatinine is 0.9, glucose 117, calcium 8.6. IMPRESSION AND PLAN: Upper GI Bleed due to bleeding gastric ulcers Perforated sigmoid diverticulitis s/p colon resection and ostomy Peritonitis Acute blood loss anemia Leukocytosis Abdominal pain Nausea and vomiting PLAN: Mr. Williamson is a 38 year old male with history of perforated sigmoid diverticulitis s/p colon resection and ostomy placement. GI is following for an upper GI bleed. An endoscopy was done on 03/10 and showed that the patient had some 4 nonbleeding gastric punctate and clean based ulcers ranging from 3 to 7 mm in size found in the gastric antrum. A single nonbleeding ulcer measuring 20 mm in size with pigmented spot was found in the gastric antrum. The ulcers were cauterized. There was moderate amount of residual food in the gastric body. Random gastric biopsies were performed. Awaiting the results of the biopsies. The patient also had exploratory laparotomy with sigmoid colon resection, the Iris's pouch and descending end of the colostomy on 03/04/2019. The patient's hemoglobin and hematocrit today is 8.6 and 26.6. So far, the patient has received 4 units of blood. He is currently on Protonix 40 mg IV twice a day. The patient is receiving antibiotic, Zosyn. He is on Zofran and Phenergan for his nausea and vomiting. We will continue to monitor the patient and follow the plan of care per PCP and the surgeon. This plan was discussed with Dr. Batista. Please call us for any further questions or concerns. Dictated by LYLE Crowe for Blas Batista MD Physician Attestation I have seen and examined the patient. I have discussed and reviewed the note by Daria ALVARENGA and agree with findings and plan as documented. In brief, Mr. Arvind Williamson is a 38-year-old gentleman who presented with sigmoid diverticulitis c/b perforation and abscess requiring emergent ex-lap with sigmoid resection, Iris's pouch and descending end-colostomy. GI consulted for UGIB s/p EGD on 03/10 that showed multiple gastric antral ulcers s/p epinephrine and cautery of largest antral ulcer (2cm). He is s/p 4 units pRBC. Hgb stable. Melenic stool is old. Will need repeat EGD in 3 months and colonoscopy prior to take-down surgery. Will sign off. Follow-up in 4-6 weeks. MTDD
[2019-03-13 14:38] VITALS: BP 136/73
--- NOTE | 2019-03-14 08:47 | DISCHARGE SUMMARY ---
ADMISSION DATE: 03/01/2019 DISCHARGE DATE: 03/13/2019 ADMISSION DIAGNOSES: 1. Abdominal pain, fever and chills. 2. Sigmoid diverticulitis. DISCHARGE DIAGNOSES: 1. Anemia secondary to acute blood loss anemia. 2. Diverticulitis with sigmoid diverticulitis and perforation, early abscess, status post exploratory laparotomy with sigmoid colon resection and ostomy placement. 3. Peptic ulcer disease with a total of 5 peptic ulcers, 1 was bleeding. CONSULTATIONS: 1. Dr. Batista. 2. Dr. Crane. 3. Wound care. SURGERIES AND PROCEDURES: On 03/04/2019, performed by Dr. Trinidad, exploratory laparotomy with sigmoid colon resection, Iris's pouch and descending end colostomy. On 03/10/2019, Dr. Batista did EGD and injected the 20 mm sized gastric antrum ulcer with epi and cauterized it and then 4 more smaller ulcers were found between 3 and 7 mm. HOSPITAL COURSE: Mr. Arvind Williamson is a 38-year-old male with no significant medical history, came in on the with complaints of 1 week having abdominal pain, fever and chills. Had a recent tooth extraction, put on amoxicillin, so had been on amoxicillin for the past week. However, the abdominal discomfort and fevers had worsened. Imaging showed that he had diverticulitis with a possible abscess. General Surgery was consulted and Gastroenterology was consulted. He was started on IV antibiotics, IV fluids, antiemetics, pain medication. In the beginning there were no signs of perforation. He was put on bowel rest, continued on IV antibiotics, Cipro and Flagyl. He actually had started to improve and sips of liquids was added on the . An abdominal pelvic CT without contrast, which showed diverticulitis and worsening free air and fluid with a developing abscess and peritonitis, so he went for urgent exploratory laparotomy with sigmoid colon resection, Iris's pouch and descending and colostomy placement. Antibiotic eventually was changed to Invanz. Perdomo was removed on the . He slowly started to get bowel sounds back on the . NG tube was clamped and eventually removed on the . He was placed on a full liquid diet. He completed a 14 day course of antibiotic Invanz and Wound Care is consulted for the ostomy education. He was advanced in his diet and tolerated that well. On the , there was noticeable black output through the ostomy. He had been getting IV Toradol so that was stopped and he was kept on IV Protonix. On the , he received 3 units of packed red blood cells and on the , he received 1 unit of packed red blood cells. On the , he had EGD. There were 4 ulcers found between 3 to 7 mm in size in the gastric antrum and then there is a single ulcer measuring 20 mm in size in the gastric antrum as well. It was injected with epi and he was able to resume a clear liquid diet. He improved daily and is discharged home. DISCHARGE VITAL SIGNS: Temperature 99.1 degrees, heart rate 88, respiratory rate 16, blood pressure 136/73, O2 saturation 98% on room air. DISCHARGE LAB DATA: White blood cells 12,000, hemoglobin 8, hematocrit 26, platelet count 484,000. Sodium 142, potassium 3.7, BUN 9, creatinine 0.9, glucose 117, calcium 8.6. IMAGIN03/01/2019 chest x-ray: Poor inspiration, cardiomegaly. Abdominal pelvic CT, sigmoid diverticulitis with early abscess formation and then a repeat abdominal pelvic CT on 03/04/2019 which showed diverticulitis with worsening free air and fluid with a developing abscess. No EKGs during this admission. DISCHARGE MEDICATIONS: 1. Carafate 1 g p.o. t.i.d. 2. [place] 7.5 one tablet p.o. every 4 to 6 hours p.r.n. 3. Omeprazole 40 mg p.o. twice daily. 4. Zofran 4 mg p.o. q.6 hours p.r.n. DISCHARGE DIET: Soft, regular. DISCHARGE ACTIVITY: No driving while taking pain medication. No heavy lifting. DISCHARGE INSTRUCTIONS: If his condition changes, contact physician and/or return to the emergency department. Changes may include, but not limited to shortness of breath, increased fatigue, excessive bleeding, unexplained weight loss or gain, unmanageable pain, signs or symptoms of infection, fever of 101 or above, foul smelling drainage from incision, shortness of breath, chest pain, uncontrolled pain or nausea, difficulty having a bowel movement. Please notify your physician. Wound care: Keep incision clean and dry. No submersion of incision. PHYSICIAN FOLLOW-UP: Dr. Batista and Dr. Trinidad. Your Dr. Trinidad follow-up is on 03/20/2019 at 0830 a.m. DISCHARGE DISPOSITION: Home. Dictated by LYLE Aguilar for Amando Barcenas MD Addendum: Patient seen and examined by myself. Agree with LYLE note. It reflects my assessment and plan. Patient is being released in stable condition. Will be seen by General Surgery and GI upon discharge. cc: LYLE Aguilar MD [facility]
== END 2019-03-13 15:18 | disposition home or self-care (01) ==
LOC: ED 17:10 → SUATTDRO 21:23 → 4N 21:23
PROVIDERS: ATTEND Internal Medicine